=== PATIENT | female | born 1955 | race Caucasian/White ===

== ENCOUNTER 2019-12-05 18:16 | Inpatient (IN) | payer MEDICARE, BC ==
[~2019-12-05] VITALS: Ht 154.9 cm; Wt 115.2 kg
--- NOTE | ~2019-12-05 | EC ---
PATIENT:MARIANA LOPES DATE OF SERVICE: 12/05/19 SEX: F MEDICAL RECORD: [id number] DATE OF : [birth year] LOCATION:D.M2 D.210 AGE OF PATIENT: 64 ADMISSION DATE: 12/05/19 REFERRING PHYSICIAN: INTERPRETING PHYSICIAN: AYANA CAMPBELL MD ECHOCARDIOGRAM REPORT ECHO CHARGES 4 ECHO COMPLETE Date: 12/06/19 CLINICAL DIAGNOSIS: EDEMA/MURMUR ECHOCARDIOGRAPHIC MEASUREMENTS (adult normal given) AC root (d.<3.7cm) 3.2 cm LV Septum d (<1.2 cm> 1.5 cm Valve Excursion 1.6 cm LV Septum (systole) 1.9 cm Left Atria (s.<4.0cm> 4.5 cm LVPW d(<1.2cm) 1.9 cm RV (d.<2.3cm) 3.8 cm LVPW (sytole) 2.0 cm LV diastole(<5.6CM) 4.7 cm MV E-F(>70mm/sec) cm LV systole 3.0 cm LVOT Diameter 2.0 cm MV exc.(>10mm) 1.6 cm Est.ejection fraction (50-75%) % DOPPLER: LVIT cm/sec A 114 cm/sec E 97.0 cm/sec LA cm/sec RVSP 52 mmHg LVOT 139 cm/sec AOP1/2T m/s Asc. Ao 182 cm/sec RVOT 129 cm/sec RA cm/sec PA 172 cm/sec AV Gradient Peak 13.23mmHg AV Mean 5.96 mmHg AV Area 2.6 cm MV Gradient Peak 7.82 mmHg MV Mean 3.54 mmHg MV Area cm COMMENTS: Woven Blind Loom Tender: 2 JONATHAN GUZMAN Solar Installation Foreman: 4 Dr. Campbell TAPE# PACS Pericardial Effusion N DATE OF SERVICE: PROCEDURE: Transthoracic echocardiogram. Left ventricle: Left ventricle shows evidence of LVH. There is diastolic inflow abnormalities. The hypertrophy is concentric. The patient has preserved to hyperdynamic ejection fraction 60% to 65%. The left atrium is moderately dilated. ECHOCARDIOGRAM REPORT [id number] MARIANA LOPES Aortic valve is normal. Mitral valve appears to be grossly normal. There is mild mitral annular calcification. The tricuspid valve has mild tricuspid valve regurgitation. The right ventricular systolic pressure is moderately elevated at 52 mmHg. Right ventricle is mildly enlarged. Right atrium is mildly enlarged. Pulmonic valve appears to be otherwise normal. TRANSINT:[id number] Voice Confirmation ID: [id number] DOCUMENT ID: [id number] AYANA CAMPBELL MD CC: [id number] DICTATION DATE: 12/07/19 1142 CARBIDE GRINDER: 12/07/19 1307 ADM IN [facility] [address] [place] [address]
[2019-12-05] MEDS ORDERED: GLIPIZIDE10 MG PO (18:50)
[2019-12-05] MEDS ORDERED: COLACE100 MG PO (18:51)
[2019-12-05] MEDS ORDERED: ZOLOFT50 MG PO (18:51)
[2019-12-05] MEDS ORDERED: FUROSEMIDE20 MG PO (18:51)
[2019-12-05] MEDS ORDERED: NOVOLIN 70/30 110 ML SC (18:51)
[2019-12-05] MEDS ORDERED: CLARITIN 10 MG10 MG PO (18:51)
[2019-12-05] MEDS ORDERED: NORMODYNE / TR100 MG PO (18:52)
[2019-12-05] MEDS ORDERED: PLAVIX75 MG PO (18:52)
[2019-12-05] MEDS ORDERED: LIPITOR80 MG PO (18:52)
[2019-12-05] MEDS ORDERED: NORVASC5 MG PO (18:52)
[2019-12-05] MEDS ORDERED: CATAPRES TTS-20.2 MG TD (18:53)
[2019-12-05] MEDS ORDERED: LISINOPRIL20 MG PO (18:53)
[2019-12-05 19:40] LABS: BASOPHILS 0.3 % (0-2); EOSINOPHILS 4.9 % (0-7); HEMATOCRIT 33.9 % (36.0-48.0); HEMOGLOBIN 10.4 g/dL (12-16); IMMATURE GRANULOCYTES 0.5 % (0-5); LYMPHOCYTES 16.6 % (15-50); MCH 26.3 pg (26.0-34.0); MCHC 30.7 g/dL (31.0-37.0); MCV 85.8 fL (80.0-100.0); MEAN PLATELET VOLUME 9.9 fL (7.4-10.4); MONOCYTES 4.9 % (2-11); NEUTROPHILS 72.8 % (40-80); PLATELET COUNT 401 10x3/uL (130-400); RBC 3.95 10x6/uL (4.00-5.40); WBC 18.3 10x3/uL (4.8-10.8)
[2019-12-05 19:45] LABS: ANION GAP 23.1 mmol/L (8-16); CALCIUM 8.1 mg/dL (8.5-10.1); CARBON DIOXIDE 12.8 mmol/L (21.0-32.0); CREATININE - SERUM 4.8 mg/dL (0.6-1.3); POTASSIUM - SERUM 5.9 mmol/L (3.5-5.1)
[2019-12-05 19:56] LABS: ALBUMIN 3.3 g/dL (3.4-5.0); BILIRUBIN - TOTAL 0.28 mg/dL (0.2-1.3); PROTEIN - SERUM 7.9 g/dL (6.4-8.2)
[2019-12-05 19:59] LABS: INR 1.2 (0.85-1.17); PROTIME 15.1 SECONDS (11.6-15.0)
[2019-12-05 20:15] LABS: CKMB 1.4 U/L (0.0-3.6); CREATINE KINASE 73 UL (21-215); PRO BNP 1981 pg/mL (0-125)
[2019-12-05 20:23] LABS: TROPONIN-I < 0.017 ng/mL (0.000-0.060)
--- NOTE | 2019-12-05 21:16 | NUR ---
PATIENT SENT HERE BY HER DOCTOR, STATES SHE IS IN KIDNEY FAILURE. PATIENT IS A+O X3, VERY PLEASANT, IS ABLE TO URINATE,
--- NOTE | 2019-12-05 22:00 | NUR ---
ADMIT TO ROOM 2108 FROM ER. ALERT/ORIENTED. CALL LIGHT IN REACH.
--- NOTE | 2019-12-05 22:45 | NUR ---
PT SITTING UP IN BED WITHOUT DISTRESS, AOX4. IV LEFT FA SL, FLUSHES EASILY. VSS. WALKER AT BEDSIDE. PT STATES SHE IS WEAK AND HAS FALLEN AT HOME A FEW TIMES. ENCOURAGED PT TO CALL WHEN NEEDING ASSISTANCE UP. BED ALARM ON. PT VERBALZIED UNDERSTANDING. PROVIDED PT WITH ICE WATER. TELE PLACED ON PT. PT HAVING TREMORS IN LEFT LEG. STATES IT "JUMPS" WHEN SHE IS TIRED. TURNED LIGHTS OFF FOR PT. DENIED FURTHER NEEDS. CL IN REACH, WILL CTM
[2019-12-06] VITALS: BP 108/54
[2019-12-06] MEDS ORDERED: METHOTREXATE2.5 MG PO (00:10)
[2019-12-06] MEDS ORDERED: PROTONIX20 MG PO (00:11)
[2019-12-06] MEDS ORDERED: ZOLOFT100 MG PO (00:11)
[2019-12-06] MEDS ORDERED: DIOVAN160 MG PO (00:12)
[2019-12-06] MEDS ORDERED: NORVASC5 MG PO (00:12)
[2019-12-06 00:13] VITALS: BMI 49.0
--- NOTE | 2019-12-06 00:15 | NUR ---
ASSISTED PT TO BATHROOM WITH WALKER. VOIDED 300ML
[2019-12-06 04:49] VITALS: BP 127/54
[2019-12-06 05:07] LABS: BASOPHILS 0.1 % (0-2); EOSINOPHILS 4.7 % (0-7); HEMATOCRIT 30.5 % (36.0-48.0); HEMOGLOBIN 9.4 g/dL (12-16); IMMATURE GRANULOCYTES 0.4 % (0-5); LYMPHOCYTES 17.9 % (15-50); MCH 25.9 pg (26.0-34.0); MCHC 30.8 g/dL (31.0-37.0); MEAN PLATELET VOLUME 10.3 fL (7.4-10.4); MONOCYTES 6.3 % (2-11); NEUTROPHILS 70.6 % (40-80); RBC 3.63 10x6/uL (4.00-5.40); RDW 15.2 % (11.5-14.5); WBC 16.2 10x3/uL (4.8-10.8)
[2019-12-06 05:16] LABS: PLATELET COUNT 288 10x3/uL (130-400)
[2019-12-06 05:22] LABS: ALBUMIN 2.9 g/dL (3.4-5.0); BILIRUBIN - TOTAL 0.36 mg/dL (0.2-1.3); CALCIUM 7.9 mg/dL (8.5-10.1); CARBON DIOXIDE 11.8 mmol/L (21.0-32.0); CREATININE - SERUM 4.5 mg/dL (0.6-1.3); PROTEIN - SERUM 7.4 g/dL (6.4-8.2)
[2019-12-06 05:24] LABS: ANION GAP 21.1 mmol/L (8-16); POTASSIUM - SERUM 5.9 mmol/L (3.5-5.1)
--- NOTE | 2019-12-06 05:27 | NUR ---
ASSISTED PT UP TO BATHROOM WITH WALKER. PT HAVING DIARHEA THIS MORNING. STATES "THIS ALWAYS HAPPENS WHEN I COME TO HOSPITAL" CHANGED PT LINENS IT GOT ON THEM WHILE AMBULATING. PROVIDED NEW GOWN
--- NOTE | 2019-12-06 06:09 | NUR ---
PT VOIDED 100ML. ASSISTED BACK TO BED. BED ALARM ON. NON SLIP SOCKS ON. YELLOW BAND ON. PROVIDED PT ICE WATER AND KLEENEX. ENCOURAGED PT TO USE INCENTIVE SPIROMETER, EDUCATED ON USE. PT VERBALIZED UNDERSTANDING. ABLE TO INHALE 1000. SCDS ON. DENIES NEEDS. CL IN REACH, WILL CTM
--- NOTE | 2019-12-06 09:52 | NUR ---
RESTING IN BED, NO DISTRESS NOTED, ALERT AND O, CONT TO MONITOR LABS
[2019-12-06 10:04] LABS: % SATURATION 16 % (15-55); IRON 52 ug/dl (35-150); TOTAL IRON BIND CAPACITY 306 ug/dl (260-445); UNSAT IRON BIND CAPACITY 254 ug/dl (150-375)
[2019-12-06 10:44] VITALS: BP 151/55
[2019-12-06 12:13] LABS: SPECIFIC GRAVITY 1.015 (1.005-1.020)
[2019-12-06 12:14] LABS: BACTERIA FEW /hpf (NEGATIVE); BILIRUBIN NEGATIVE (NEGATIVE); GLUCOSE 250 mg/dL (NEGATIVE); KETONE NEGATIVE (NEGATIVE); NITRITE NEGATIVE (NEGATIVE); UROBILINOGEN NORMAL (NORMAL); WHITE CELLS - URINE 0-5 /hpf (NEGATIVE)
[2019-12-06 12:36] LABS: CREATININE - URINE 66.2 mg/dL (30-125)
[2019-12-06 12:46] LABS: PROTEIN - URINE 474.3 mg/dL (0.0-11.9)
[2019-12-06 12:59] VITALS: BP 173/64
[2019-12-06 16:00] VITALS: BP 176/66
--- NOTE | 2019-12-06 19:17 | NUR ---
RECEIVED REPORT, WILL ASSUME CARE OF PT, ASSISTED PT TO RESTROOM, BACK TO BED, CALL LIGHT IN REACH, WILL CONTINUE PLAN OF CARE
[2019-12-06 20:00] VITALS: BP 167/73
[2019-12-07] VITALS: BP 155/58
[2019-12-07 04:00] VITALS: BP 149/47
--- NOTE | 2019-12-07 04:15 | NUR ---
ASSIST PT TO BATHROOM AND BACK TO BED
[2019-12-07 08:12] LABS: BASOPHILS 0.3 % (0-2); EOSINOPHILS 4.8 % (0-7); IMMATURE GRANULOCYTES 0.4 % (0-5); LYMPHOCYTES 16.1 % (15-50); MCH 26.1 pg (26.0-34.0); MCHC 31.3 g/dL (31.0-37.0); MCV 83.6 fL (80.0-100.0); MEAN PLATELET VOLUME 9.8 fL (7.4-10.4); MONOCYTES 1.7 % (2-11); NEUTROPHILS 76.7 % (40-80); RBC 3.83 10x6/uL (4.00-5.40); WBC 12.9 10x3/uL (4.8-10.8)
[2019-12-07 08:16] LABS: PLATELET COUNT 368 10x3/uL (130-400)
[2019-12-07 08:31] LABS: ALBUMIN 3.1 g/dL (3.4-5.0); BILIRUBIN - TOTAL 0.34 mg/dL (0.2-1.3); CALCIUM 8.1 mg/dL (8.5-10.1); CARBON DIOXIDE 14.7 mmol/L (21.0-32.0); PHOSPHOROUS 6.6 mg/dL (2.5-4.9); PROTEIN - SERUM 7.5 g/dL (6.4-8.2)
[2019-12-07 08:32] LABS: ANION GAP 21.2 mmol/L (8-16); POTASSIUM - SERUM 4.9 mmol/L (3.5-5.1)
[2019-12-07 09:18] VITALS: BP 144/61
--- NOTE | 2019-12-07 09:43 | NUR ---
UP TO SHOWER, NO DISTRESS NOTED, SL IN PLACE, C/O SOME DIARRHEA AGAIN THIS AM
[2019-12-07 12:56] VITALS: BP 187/74
[2019-12-07 17:00] VITALS: BP 140/77
--- NOTE | 2019-12-07 17:00 | NUR ---
RECHECKED PT BP 140/77 SUGAR 257, STATES THAT SHE DOESNT FEEL THAT WELL THIS PM, CONT TO MONITOR
[2019-12-07 17:23] VITALS: BP 200/70
--- NOTE | 2019-12-07 19:30 | NUR ---
RECEIVED REPORT, WILL ASSUME CARE OF PT, WOOD MOLDER IN ROOM CLEANING PT UP, WILL KEEP NPO ORDER FOR PROCEDURE ORDER, BED IS LOW, SRX2, CALL LIGHT IN REACH, WILL CONTINUE PLAN OF CARE
[2019-12-08] VITALS: BP 185/73
[2019-12-08 04:00] VITALS: BP 149/66
--- NOTE | 2019-12-08 05:15 | NUR ---
I have reviewed this patient and I concur with the Shift Assessment completed by the Licensed Practical Nurse today this shift.
[2019-12-08 05:56] LABS: BASOPHILS 0.2 % (0-2); EOSINOPHILS 1.6 % (0-7); HEMATOCRIT 30.8 % (36.0-48.0); HEMOGLOBIN 9.7 g/dL (12-16); IMMATURE GRANULOCYTES 0.2 % (0-5); LYMPHOCYTES 12.3 % (15-50); MCH 26.3 pg (26.0-34.0); MCHC 31.5 g/dL (31.0-37.0); MCV 83.5 fL (80.0-100.0); MONOCYTES 1.3 % (2-11); NEUTROPHILS 84.4 % (40-80); PLATELET COUNT 354 10x3/uL (130-400); RBC 3.69 10x6/uL (4.00-5.40); RDW 14.7 % (11.5-14.5); WBC 16.1 10x3/uL (4.8-10.8)
[2019-12-08 06:22] LABS: ALBUMIN 2.9 g/dL (3.4-5.0); ANION GAP 19.3 mmol/L (8-16); BILIRUBIN - TOTAL 0.48 mg/dL (0.2-1.3); CALCIUM 8.3 mg/dL (8.5-10.1); CARBON DIOXIDE 14.2 mmol/L (21.0-32.0); CREATININE - SERUM 3.7 mg/dL (0.6-1.3); PHOSPHOROUS 5.1 mg/dL (2.5-4.9); POTASSIUM - SERUM 4.5 mmol/L (3.5-5.1); PROTEIN - SERUM 7.3 g/dL (6.4-8.2)
[2019-12-08 08:13] VITALS: BP 165/74
[2019-12-08 10:03] LABS: APTT 44.7 SECONDS (22.8-39.4); INR 1.21 (0.85-1.17); PROTIME 15.3 SECONDS (11.6-15.0)
[2019-12-08 10:15] VITALS: Ht 154.9 cm; Wt 115.2 kg
[2019-12-08 14:15] VITALS: BP 163/72
--- NOTE | 2019-12-08 14:20 | NUR ---
RECIEVED PT FROM RR. AWAKE BUT SLEEPY. HEMOSPLIT IN R CHEST. DRESSING CLEAN AND DRY. L LOWER ARM FISTULA IS TEGADERM. SMALL AMT OF BLOOD NOTED. VS STABLE. TAKING SIPS OF WATER TOLERATING WELL.
--- NOTE | 2019-12-08 19:20 | NUR ---
RECEIVED REPORT, WILL ASSUME CARE OF PT, DENIES ANY NEEDS AT THIS TIME, BED IS LOW, SRX2, CALL LIGHT IN REACH, WILL CONTINUE PLAN OF CARE
[2019-12-08 23:48] LABS: BILIRUBIN NEGATIVE (NEGATIVE); GLUCOSE 250 mg/dL (NEGATIVE); KETONE SMALL mg/dL (NEGATIVE); NITRITE NEGATIVE (NEGATIVE); SPECIFIC GRAVITY 1.015 (1.005-1.020); UROBILINOGEN NORMAL (NORMAL)
[2019-12-08 23:51] LABS: BACTERIA MODERATE /hpf (NEGATIVE); EPITHELIAL CELLS 0-5 /hpf (0-5); GRANULAR CAST 0-5 /lpf (NONE SEEN); HYALINE CAST 0-5 /lpf (NONE SEEN); RED CELLS - URINE 0-5 /hpf (0-5); WHITE CELLS - URINE 0-5 /hpf (NEGATIVE)
[2019-12-08 23:55] VITALS: BP 136/52
[2019-12-09 05:18] LABS: BASOPHILS 0.3 % (0-2); EOSINOPHILS 3.1 % (0-7); HEMATOCRIT 31.9 % (36.0-48.0); HEMOGLOBIN 9.8 g/dL (12-16); IMMATURE GRANULOCYTES 0.3 % (0-5); LYMPHOCYTES 12.4 % (15-50); MCH 25.9 pg (26.0-34.0); MCHC 30.7 g/dL (31.0-37.0); MCV 84.2 fL (80.0-100.0); MEAN PLATELET VOLUME 9.9 fL (7.4-10.4); MONOCYTES 3.4 % (2-11); NEUTROPHILS 80.5 % (40-80); PLATELET COUNT 359 10x3/uL (130-400); RBC 3.79 10x6/uL (4.00-5.40); RDW 14.7 % (11.5-14.5); WBC 17.2 10x3/uL (4.8-10.8)
[2019-12-09 05:37] LABS: ALBUMIN 2.9 g/dL (3.4-5.0); BILIRUBIN - TOTAL 0.53 mg/dL (0.2-1.3); CREATININE - SERUM 3.1 mg/dL (0.6-1.3); POTASSIUM - SERUM 4.1 mmol/L (3.5-5.1); PROTEIN - SERUM 7.5 g/dL (6.4-8.2)
[2019-12-09 05:39] LABS: ANION GAP 20.3 mmol/L (8-16); CARBON DIOXIDE 17.8 mmol/L (21.0-32.0)
--- NOTE | 2019-12-09 07:46 | NUR ---
4MG OF ZOFRAN GIVEN FOR NAUSEA. PT A/O X4, RESP EVEN AND NONLABORED ON RA. RT FA INFUSING SODIUM BICARB AT 30CC/HR. FISTULA SITE TENDER TO TOUTH AND SMALL AMOUNT OF BLOOD NOTED TO SITE. PT DENIES ANY OTHER NEEDS AT THIS TIME. GUARD RAIL INSTALLER AT BEDSIDE TO GET VITAL SIGNS. CALL LIGHT IN REACH, BEDSIDE RAILS X2, NAD NOTED, WILL CONTINUE TO MONITOR.
[2019-12-09 08:10] LABS: HEPATITIS C ANTIBODY <0.1 S/CO RAT (0.0-0.9)
[2019-12-09 08:29] VITALS: BP 171/73
[2019-12-09 09:09] LABS: ANA REFLEX - DIRECT Negative (Negative)
--- NOTE | 2019-12-09 09:58 | NUR ---
AM MEDS GIVEN AT THIS TIME. PT IN BED, DENIES ANY NEEDS AT THIS TIME. CALL LIGHT IN REACH, NAD NOTED, WILL CONTINUE TO MONITOR.
--- NOTE | 2019-12-09 10:14 | NUR ---
PT TO DIALYSIS VIA BED, NAD NOTED.
--- NOTE | 2019-12-09 13:36 | NUR ---
PT BACK FROM DIALYSIS. HELPED PT TO BATHROOM, PT WILL PULL BATHROOM RIGHT, WHEN READY TO GET BACK IN BED.
--- NOTE | 2019-12-09 14:34 | NUR ---
0.1MG OF BUPRENEX GIVEN FOR PAIN LEVEL OF 10/10. ALSO GAVE 4MG OF ZOFRAN FOR NAUSEA. PT DENIES ANY OTHER NEEDS AT THIS TIME. CALL LIGHT IN REACH,NAD NOTED,W ILL CONTINUE TO MONITOR.
[2019-12-09 16:08] LABS: SPE - A/G RATIO 0.9 (0.7-1.7); SPE - ALBUMIN 3.4 g/dL (2.9-4.4); SPE - ALPHA-1 GLOBULIN 0.3 g/dL (0.0-0.4); SPE - ALPHA-2 GLOBULIN 1.2 g/dL (0.4-1.0); SPE - BETA GLOBULIN 1.1 g/dL (0.7-1.3); SPE - GAMMA GLOBULIN 1.2 g/dL (0.4-1.8); SPE - M-SPIKE Not Observed g/dL (Not Observed); SPE - TOTAL PROTEIN 7.1 g/dL (6.0-8.5)
[2019-12-09 17:13] VITALS: BP 140/71
--- NOTE | 2019-12-09 19:00 | NUR ---
REPORT RECEIVED, WILL CONTINUE POC. PATIENT IS AAOX4, LYING IN SEMI-FOWLERS POSITION. NO S/S OF DISTRESS OBSERVED, RR EVEN AND UNLABORED ON ROOM AIR. PATIENT C/O PAIN TO LT WRIST, DAY NURSE ALREADY REWRAPPED IN KERLEX AND RELEIVED PRESSURE. INFORMED PATIENT THAT SHE HAS A PRN PAIN MED, SHE SAID SHE WOULD TAKE IT. PATIENT DENIES FURTHER NEEDS AT THIS TIME. CL IN REACH, BED LOCKED AND LOWERED. WILL CTM.
--- NOTE | 2019-12-09 19:25 | NUR ---
PATIENT DAUGHTER CALLED, PASSWORD VERIFIED, UPDATE GIVEN.
[2019-12-09 20:00] VITALS: BP 186/81
--- NOTE | 2019-12-09 23:58 | NUR ---
PATIENT HEAT TREATER HEAD LIGHT, ON SIDE OF BED UPON ENTERING ROOM. PATIENT REMOVED DRSG TO LT WRIST. APPLIED A NEW TEGADERM AND KERLEX. EDUCATED PATIENT TO NOT REMOVE DRESSINGS AND INFECTION CONTROL. ASSISTED PATIENT TO BATHROOM, WHERE SHE VOMITED GREEN/YELLOW LIQUID AND HAD SMALL LOOSE BM. ASSISTED PATIENT BACK TO BED. OFFERED SMALL SIPS OF WATER. PATIENT SAYS SHE FEELS A LITTLE BETTER. CL IN REACH, BED LOCKED AND LOWERED. WILL CTM.
[2019-12-10] VITALS: BP 170/62
[2019-12-10 04:00] VITALS: BP 166/68
[2019-12-10 06:31] LABS: BASOPHILS 0.2 % (0-2); EOSINOPHILS 2.4 % (0-7); HEMATOCRIT 29.9 % (36.0-48.0); HEMOGLOBIN 9.3 g/dL (12-16); IMMATURE GRANULOCYTES 0.4 % (0-5); MCH 26.2 pg (26.0-34.0); MCHC 31.1 g/dL (31.0-37.0); MCV 84.2 fL (80.0-100.0); MONOCYTES 5.1 % (2-11); NEUTROPHILS 74.9 % (40-80); PLATELET COUNT 298 10x3/uL (130-400); RBC 3.55 10x6/uL (4.00-5.40); RDW 14.4 % (11.5-14.5); WBC 13.9 10x3/uL (4.8-10.8)
[2019-12-10 06:54] LABS: ALBUMIN 2.7 g/dL (3.4-5.0); BILIRUBIN - DIRECT 0.15 mg/dL (0.00-0.30); BILIRUBIN - INDIRECT 0.32 mg/dL (0.00-1.00); BILIRUBIN - TOTAL 0.47 mg/dL (0.2-1.3); CALCIUM 7.7 mg/dL (8.5-10.1); CREATININE - SERUM 3.4 mg/dL (0.6-1.3); PHOSPHOROUS 5.8 mg/dL (2.5-4.9); POTASSIUM - SERUM 3.5 mmol/L (3.5-5.1); PROTEIN - SERUM 6.4 g/dL (6.4-8.2)
[2019-12-10 06:55] LABS: ANION GAP 16.1 mmol/L (8-16); CARBON DIOXIDE 22.4 mmol/L (21.0-32.0)
[2019-12-10 08:00] VITALS: BP 182/75
--- NOTE | 2019-12-10 10:00 | NUR ---
AM MEDS GIVEN AT THIS TIME, ALSO GAVE NORCO FOR PAIN LEVEL OF 5/10. ALSO GAVE 4MG OF ZOFRAN FOR NAUSEA. PT DENIES ANY NEED AT THIS TIME. CALL LIGHT IN REACH, NAD NOTED, WILL CONTINUE TO MONITOR.
[2019-12-10 12:00] VITALS: BP 147/56
--- NOTE | 2019-12-10 12:12 | NUR ---
Nutrition Follow-up: C/o N/V/D since admit. Ate ~25% of breakfast this AM. Requested chicken broth with lunch today. Agreed to try Nepro. HD yesterday. Diet: Renal ADA PO intake: 0-25% Wt: 266.7# (12/08); 258# (12/07) Labs noted: K+ 3.5, Glu 198, Ca 7.7, PO4 5.8, Alb 2.7 Meds noted: Glucotrol, Lomotil, Zofran, Folate, Humulin -Encourage PO intake and honor food preferences within diet restrictions. -Nepro sent with lunch today for pt trial. -Monitor wt. -RD following.
[2019-12-10 16:00] VITALS: BP 168/73
[2019-12-10 16:08] LABS: ANCA - ANTIMYELOPEROXIDASE <9.0 U/mL (0.0-9.0); ANCA - ANTIPROTEINASE 3 <3.5 U/mL (0.0-3.5); ANCA - ATYPICAL <1:20 titer (Neg:<1:20); ANCA - CYTOPLASMIC <1:20 titer (Neg:<1:20); ANCA - PERINUCLEAR <1:20 titer (Neg:<1:20)
--- NOTE | 2019-12-10 16:30 | NUR ---
BLOOD SUGAR OF 261, 6UNITS GIVEN PER S/S. ALSO GAVE NORCO FOR PAIN LEVEL OF 5/10. DRESSING CHANGE PROVIDED TO RT CHEST HEMOSPLIT. PT DENIES ANY NEEDS AT THIS TIME. CALL LIGHT IN REACH, NAD NOTED, WILL CONTINUE TO MONITOR.
--- NOTE | 2019-12-10 16:42 | MORECARE ---
CASE MANAGEMENT DISCHARGE SUMMARY PATIENT: MARIANA LOPES UNIT: [id number] ADM DATE: 12/05/19 AGE: 64 : 59 SEX: F ROOM/BED: D.2104 AUTHOR: SANTIAGO DIGGS PHYSICIAN: REFERRING PHYSICIAN: KELSEY BADILLO MD DATE OF SERVICE: 12/10/19 Discharge Plan Patient Name: MARIANA LOPES [facility] [facility] 1955 Planned Disposition: Inpatient Rehab Anticipated Discharge Date: Discharge Date: Expected LOS: Initial Reviewer: [email or web address] Initial Review Date: 12/10/2019 Generated: 12/10/19 5:41 pm DCPIA - Discharge Planning Initial Assessment Updated by [email or web address]: Tracey Gill on 12/10/19 4:39 pm * Is the patient Alert and Oriented? Yes * How many steps to enter\exit or inside your home? 4/0 * PCP Dr. Lacey in [place] * [facility] in [place] * Preadmission Environment Home with Family * ADLs Partial Dependent * Partial ADLs (Assistance needed) Ambulation * Equipment Glucometer Other * Other Equipment Rollator walker * List name and contact numbers for known caregivers / representatives who currently or will assist patient after discharge: Alton Lopes - spouse - [phone] * Verbal permission to speak to the caregivers and representatives has been obtained from the patient. Yes * Community resources currently utilized Home Health * Please name any agencies selected above. unknown home health agency * Additional services required to return to the preadmission environment? Yes * Can the patient safely return to the preadmission environment? Yes * Has this patient been hospitalized within the prior 30 days at any hospital? Yes Patient Name: MARIANA LOPES Page 00054 at 1642 All edits/amendments must be made on the electronic document DICTATION DATE: 12/10/191640 PHARMACY LABORATORY TECHNICIAN: LAUREN 12/10/191640 RPT#: [id number] DC DATE: STATUS: ADM IN [facility] [address] [id number] END OF REPORT
--- NOTE | 2019-12-10 16:49 | MORECARE ---
CASE MANAGEMENT DISCHARGE SUMMARY PATIENT: MARIANA LOEPS UNIT: [id number] ADM DATE: 12/05/19 AGE: 64 : 59 SEX: F ROOM/BED: D.2101 AUTHOR: SANTIAGO DIGGS PHYSICIAN: REFERRING PHYSICIAN: KELSEY QUISPE MD DATE OF SERVICE: 12/10/19 Discharge Plan Patient Name: MARIANA LOPES Facility: [facility]:[place] : 1955 Planned Disposition: Inpatient Rehab Anticipated Discharge Date: Discharge Date: Expected LOS: Initial Reviewer: [email or web address] Initial Review Date: 12/10/2019 Generated: 12/10/19 5:49 pm Comments DCP- Discharge Planning Updated by [email or web address]: Tracey Gill on 12/10/19 3:[address] Patient Name: MARIANA LOPES Admission Status: ER Accout number: [id number] Admission Date: 12-05-2019 : 1955 Admission Diagnosis:ACUTE KIDNEY FAILURE, UNSPECIFIED Attending: Kelsey Quispe Current LOS: 5 Anticipated DC Date: Planned Disposition: Inpatient Rehab Primary Insurance: MEDICARE A & B Discharge Planning Comments: CM met with patient to discuss discharge planning/needs. States she lives with her in a single story home. States she has gotten very weak and is requesting inpatient rehab at [facility] prior to discharging home. ZULEYKA for [facility] signed and rehab screen ordered. I have also ordered a PT eval. She states that she uses her walker for ambulation. She will be set up at [facility] in [place] for dialysis. I spoke with Samanta Weiner, OP dialysis coordinator, and she states she has a chair for her, but will let us know date and time when she is ready for DC. I notified Samanta that patient is requesting inpatient rehab prior to discharge. CM will continue to follow and assist with discharge planning/needs. #[phone] Brick Wheeler: Tracey Gill DCPIA - Discharge Planning Initial Assessment Updated by [email or web address]: Tracey Gill on 12/10/19 4:39 pm * Is the patient Alert and Oriented? Yes * How many steps to enter\exit or inside your home? 4/0 * PCP Dr. Lacey in [place] * Pharmacy [facility] in [place] * Preadmission Environment Home with Family * ADLs Partial Dependent * Partial ADLs (Assistance needed) Ambulation * Equipment Glucometer Other * Other Equipment Rollator walker * List name and contact numbers for known caregivers / representatives who currently or will assist patient after discharge: Alton Lopes - spouse - [phone] * Verbal permission to speak to the caregivers and representatives has been obtained from the patient. Yes * Community resources currently utilized Home Health * Please name any agencies selected above. unknown home health agency * Additional services required to return to the preadmission environment? Yes * Can the patient safely return to the preadmission environment? Yes * Has this patient been hospitalized within the prior 30 days at any hospital? Yes Coverage Notice Reviewer: [email or web address] Kaya Gill Notice Issued Date-Time: 12/10/2019 16:43 Notice Type: IM Discharge Notice Notice Delivered To: Patient Relationship to Patient: Self Brake Repairer Name: Delivery Method: HAND - Hand Delivered Sue Days: Prior Verbal Notification: Recipient Understood Notice: Yes Recipient Signature: Yes Med Rec Note Co-signed by Attending: Coverage Notice Comment: IMM explained, signed, given, copy placed in MR Reviewer: [email or web address] Kaya Gill Notice Issued Date-Time: 12/10/2019 16:43 Notice Type: Patient Choice Letter Notice Delivered To: Patient Relationship to Patient: Self Brake Repairer Name: Delivery Method: HAND - Hand Delivered Sue Days: Prior Verbal Notification: Recipient Understood Notice: Yes Recipient Signature: Yes Med Rec Note Co-signed by Attending: Coverage Notice Comment: ZULEYKA for inpatient rehab at [facility] Last DP export: 12/10/19 3:42 pm Patient Name: MARIANA LOPES Page [phone] at 1649 All edits/amendments must be made on the electronic document DICTATION DATE: 12/10/191648 WANIGAN CLERK: LAUREN 12/10/191648 RPT#: [id number] DC DATE: STATUS: ADM IN [facility] [address] [place] [address] END OF REPORT
--- NOTE | 2019-12-10 17:18 | OP ---
PATIENT NAME: MARIANA LOPES MEDICAL RECORD: [id number] :[birth year] LOCATION:D.M2 D.2108 ADMISSION DATE:12/05/19 SURGEON: FLO CLARK MD DATE OF OPERATION: 12/08/2019 PREOPERATIVE DIAGNOSIS: End-stage renal disease without access for hemodialysis. POSTOPERATIVE DIAGNOSES: End-stage renal disease without access for hemodialysis. PROCEDURES: 1. Creation of left wrist radiocephalic arteriovenous fistula for hemodialysis access. 2. Placement of right internal jugular HemoSplit catheter (tunneled cuffed dual-lumen hemodialysis catheter, 19 cm). 3. Immediate surgeon interpretation of fluoroscopic images during insertion of the HemoSplit catheter. SURGEON: Flo Clark MD CLINICAL ALLERGIST: None. BLOOD LOSS: 100 cc. ANESTHESIA: General. COMPLICATIONS: None. I saw the patient in her room. She has a fairly poor venous anatomy and unfortunately has a significant layer of subcutaneous adipose tissue, which is going to make for a more difficult access of the arteriovenous fistula. OPERATIVE COURSE: The patient was conveyed to the operating room electively on 12/08/2019. General anesthesia was induced by the anesthesia staff. The patient was positioned supine and then the left upper extremity was abducted at 90 degrees to the patient's chart. Left upper extremity was sterilely prepped and draped. I examined the venous and arterial systems of the left upper extremity with a handheld sterile ultrasound. An axial incision was accomplished on the volar surface of the left distal forearm and wrist. I dissected down to the radial artery, which was encircled with vessel loops. Small pairs of veins on either side of the artery were either cauterized or ligated. Underneath the dorsal flap of skin, I tried to find a suitable vein. Some small veins were ligated doubly and divided between ligatures. I really was unable to find a suitable vein. With the ultrasound, I found a suitable vein that was the cephalic vein that was more proximal. I then incised up on to the lateral aspect of the forearm. I was able to identify a significant vein. Side branches were ligated doubly and divided between ligatures. I was unable to mobilize this vein. OPERATIVE REPORT [id number] MARIANA LOPES I then went about creating a side-to-end arterial to venous anastomosis. Intravenous heparin was given. A longitudinal arteriotomy was accomplished. I then incised the vein with micro [place]. I then fashioned an anastomosis with a running 7-0 Prolene suture. I then released control on the artery. There was some bleeding on the far side of the anastomosis and this was controlled with a few 7-0 Prolene sutures. The subdermis was approximated with interrupted 3-0 Vicryls. The skin was approximated with a running intracuticular 3-0 Vicryl. Some additional 4-0 Vicryl Rapide were used in horizontal mattress fashion at the proximal and distal aspects of the suture line. There was an excellent thrill within the fistula. Attention was then turned to placement of the HemoSplit catheter. The right neck was sterilely prepped and draped. I examined the right neck with a handheld ultrasound. I identified a compressible right internal jugular vein. Internal jugular vein was percutaneously accessed in an antegrade fashion. No radiologist was present for this procedure. Static fluoroscopic images were obtained and are kept in the PACS system for interpretation. The surgeon interpretation of the radiographic images is dictated within the body of this operative note. A small skin incision was accomplished around the wire. A counterincision was accomplished in the right anterior superior infraclavicular chest. I tunneled the 19 cm HemoSplit catheter from the chest incision to the neck incision. Over the wire, I dilated to a larger size. A dilator sheath was then advanced. The dilator and wire were removed. The tips of the HemoSplit catheter were then advanced down through the peel-away sheath, which was then removed. I then pulled back on the flange of the HemoSplit catheter in order to seat the HemoSplit catheter cuff in the subcutaneous tissues. Fluoroscopic images were obtained. One was obtained over the right lung apex. One was obtained over the mediastinum. The tips of the HemoSplit catheter were above the cavoatrial junction. There was no apparent kinking or twisting of the HemoSplit catheter. There was no radiographic evidence of complication. The flange HemoSplit catheter was sutured down to the underlying skin with 2-0 nylons. The skin incision at the neck was closed with interrupted intracuticular 3-0 Vicryls. I then flushed both lumens of the HemoSplit catheter with the appropriate amount of concentrated heparin. A sterile dressing was applied. The patient was then extubated and conveyed to post-anesthesia care unit where she was in stable condition. TRANSINT:[id number] Voice Confirmation ID: [id number] DOCUMENT ID: [id number] OPERATIVE REPORT [id number] MARIANA LOPES ROBERT MD at 1718 CC: [id number] DICTATION DATE: 12/09/191801 SMOKING PIPE MAKER: 12/10/19 0106 ADM IN [id number] [place] [address]
[2019-12-10 18:08] LABS: UPE RAND - ALBUMIN 56.4 % (()); UPE RAND - ALPHA 1 GLOBULIN 2.4 % (()); UPE RAND - ALPHA 2 GLOBULIN 9.9 % (()); UPE RAND - BETA GLOBULIN 14.7 % (()); UPE RAND - GAMMA GLOBULIN 16.7 % (())
--- NOTE | 2019-12-10 19:47 | NUR ---
PT UP IN RESTROOM. AWAKE ALERT AND ORIENTED. NO SIGNS OF DISTRESS NOTED. RESPIRATIONS EVEN AND UNLABORED. PT INSTRUCTED ON HOW TO USE PULL STRING TO CALL FOR HELP. WILL CONTINUE TO MONITOR
[2019-12-10 20:00] VITALS: BP 144/58
--- NOTE | 2019-12-11 01:03 | NUR ---
PT SITTING ON SIDE OF BED EATING NIGHT SNACK. CALL LIGHT WITH IN REACH. WILL CONTINUE TO MONITOR
[2019-12-11 04:00] VITALS: BP 117/54
[2019-12-11 07:14] LABS: BASOPHILS 0.2 % (0-2); EOSINOPHILS 5.6 % (0-7); HEMATOCRIT 27.1 % (36.0-48.0); HEMOGLOBIN 8.4 g/dL (12-16); IMMATURE GRANULOCYTES 0.3 % (0-5); MCH 26.2 pg (26.0-34.0); MCV 84.4 fL (80.0-100.0); MONOCYTES 7.3 % (2-11); NEUTROPHILS 64.6 % (40-80); PLATELET COUNT 249 10x3/uL (130-400); RBC 3.21 10x6/uL (4.00-5.40); RDW 14.2 % (11.5-14.5)
[2019-12-11 07:21] LABS: WBC 9.1 10x3/uL (4.8-10.8)
[2019-12-11 07:28] LABS: ALBUMIN 2.6 g/dL (3.4-5.0); ANION GAP 16.2 mmol/L (8-16); BILIRUBIN - TOTAL 0.28 mg/dL (0.2-1.3); CALCIUM 7.7 mg/dL (8.5-10.1); CARBON DIOXIDE 23.1 mmol/L (21.0-32.0); CREATININE - SERUM 3.9 mg/dL (0.6-1.3); POTASSIUM - SERUM 3.3 mmol/L (3.5-5.1)
[2019-12-11 08:56] VITALS: BP 159/57
--- NOTE | 2019-12-11 09:36 | NUR ---
REHAB PRESCREENING Rehab referral received and chart reviewed. Ms. Moore will be a good rehab candidate if she can tolerate 3 hours of therapy as required per day. Awaiting PT evaluation. Rehab will continue to follow this patient. Thank you for this referral! Abigail Gutierrez, RADIOLOGIC THERAPIST Rehab PD
--- NOTE | 2019-12-11 09:57 | NUR ---
ASSESSMENT DONE. DENIES NEEDS
--- NOTE | 2019-12-11 10:38 | MORECARE ---
CASE MANAGEMENT DISCHARGE SUMMARY PATIENT: MARIANA LOPES UNIT: [id number] ADM DATE: 12/05/19 AGE: 64 : 59 SEX: F ROOM/BED: D.2102 AUTHOR: DONTAE,DOC PHYSICIAN: REFERRING PHYSICIAN: KELSEY QUISPE MD DATE OF SERVICE: 12/11/19 Discharge Plan Patient Name: MARIANA LOPES Facility: [facility]:[place] : 1955 Planned Disposition: Inpatient Rehab Anticipated Discharge Date: Discharge Date: Expected LOS: Initial Reviewer: [id number] Initial Review Date: 12/10/2019 Generated: 12/11/19 11:38 am Comments DCP- Discharge Planning Updated by [email or web address]: Elise Gomez on 12/11/19 9:[address] Rehab order obtained. Provided patient with choices of Rehab @HYDROLOGIST, [facility], [facility] or [facility]. Patient's choice is [facility]. Patient Choice signed, original to patient and copy to the chart. CM Contacted [facility], with [facility]#[phone], provided initial information and faxed available information to Marjorie @[phone]. Per Rehab, they will provide HD on their 4th floor. We are pending PT/OT evaluations. Received Patient's Welcome Letter for HD [facility] obtained and provided/explained to the patient. HD schedule: M/W/F @4:00 pm. First appointment Thursday December 12, 2019 @3:00 pm for paperwork. Copy placed on the chart. Family contact: Alton Lopes (spouse)( H)[phone] works until 5 pm, Karla Montano (gdtr) [phone]. [facility] gdtr will be able to contact patient's spouse during day time hours. DCP- Discharge Planning Updated by [email or web address]: Tracey Gill on 12/10/19 3:[address] Patient Name: MARIANA LOPES Admission Status: ER Accout number: [id number] Admission Date: 12-05-2019 : 1955 Admission Diagnosis:ACUTE KIDNEY FAILURE, UNSPECIFIED Attending: Kelsey Quispe Current LOS: 5 Anticipated DC Date: Planned Disposition: Inpatient Rehab Primary Insurance: MEDICARE A & B Discharge Planning Comments: CM met with patient to discuss discharge planning/needs. States she lives with her in a single story home. States she has gotten very weak and is requesting inpatient rehab at [facility] prior to discharging home. ZULEYKA for [facility] signed and rehab screen ordered. I have also ordered a PT eval. She states that she uses her walker for ambulation. She will be set up at [facility] in [place] for dialysis. I spoke with Samanta Weiner, OP dialysis coordinator, and she states she has a chair for her, but will let us know date and time when she is ready for DC. I notified Samanta that patient is requesting inpatient rehab prior to discharge. CM will continue to follow and assist with discharge planning/needs. #[phone] Patent Prosecution Paralegal: Tracey Gill DCPIA - Discharge Planning Initial Assessment Updated by [email or web address]: Tracey Gill on 12/10/19 4:39 pm * Is the patient Alert and Oriented? Yes * How many steps to enter\exit or inside your home? 4/0 * PCP Dr. Lacey in [place] * Pharmacy [facility] in [place] * Preadmission Environment Home with Family * ADLs Partial Dependent * Partial ADLs (Assistance needed) Ambulation * Equipment Glucometer Other * Other Equipment Rollator walker * List name and contact numbers for known caregivers / representatives who currently or will assist patient after discharge: Alton Lopes - [facility] - [phone] * Verbal permission to speak to the caregivers and representatives has been obtained from the patient. Yes * Community resources currently utilized Home Health * Please name any agencies selected above. unknown home health agency * Additional services required to return to the preadmission environment? Yes * Can the patient safely return to the preadmission environment? Yes * Has this patient been hospitalized within the prior 30 days at any hospital? Yes Coverage Notice Reviewer: [id number] - Tracey Gill Notice Issued Date-Time: 12/10/2019 16:43 Notice Type: IM Discharge Notice Notice Delivered To: Patient Relationship to Patient: Self Automatic Blocker Name: Delivery Method: HAND - Hand Delivered Sue Days: Prior Verbal Notification: Recipient Understood Notice: Yes Recipient Signature: Yes Med Rec Note Co-signed by Attending: Coverage Notice Comment: IMM explained, signed, given, copy placed in MR Reviewer: [id number] - Tracey Gill Notice Issued Date-Time: 12/10/2019 16:43 Notice Type: Patient Choice Letter Notice Delivered To: Patient Relationship to Patient: Self Automatic Blocker Name: Delivery Method: HAND - Hand Delivered Sue Days: Prior Verbal Notification: Recipient Understood Notice: Yes Recipient Signature: Yes Med Rec Note Co-signed by Attending: Coverage Notice Comment: ZULEYKA for inpatient rehab at [facility] Reviewer: [email or web address] Kaya Gomez Notice Issued Date-Time: 12/11/2019 10:34 Notice Type: Patient Choice Letter Notice Delivered To: Patient Relationship to Patient: Self Automatic Blocker Name: Mariana Lopes Delivery Method: HAND - Hand Delivered Sue Days: Prior Verbal Notification: Recipient Understood Notice: Yes Recipient Signature: Yes Med Rec Note Co-signed by Attending: Coverage Notice Comment: Patient Choice for [facility] signed/provided for patient. Copy to chart. Last DP export: 12/10/19 3:49 pm Patient Name: MARIANA LOPES Page [id number] at 1038 All edits/amendments must be made on the electronic document DICTATION DATE: 12/11/19 1038 NET FISHER: LAUREN 12/11/19 1038 RPT#: [id number] DC DATE: STATUS: ADM IN [facility] [address] [place] [address] END OF REPORT
--- NOTE | 2019-12-11 10:45 | NUR ---
ASSESSMENT DONE. DENIES NEEDS
--- NOTE | 2019-12-11 14:56 | NUR ---
I have reviewed this patient and I concur with the Shift Assessment completed by the Licensed Practical Nurse today this shift.
--- NOTE | 2019-12-11 15:25 | MORECARE ---
CASE MANAGEMENT DISCHARGE SUMMARY PATIENT: MARIANA LOPES UNIT: [id number] ADM DATE: 12/05/19 AGE: 64 : 59 SEX: F ROOM/BED: D.2103 AUTHOR: DONTAE,DOC PHYSICIAN: REFERRING PHYSICIAN: KELSEY QUISPE MD DATE OF SERVICE: 12/11/19 Discharge Plan Patient Name: MARIANA LOPES Facility: [facility]:[place] : 1955 Planned Disposition: Inpatient Rehab Anticipated Discharge Date: Discharge Date: Expected LOS: Initial Reviewer: [email or web address] Initial Review Date: 12/10/2019 Generated: 12/11/19 4:24 pm Comments DCP- Discharge Planning Updated by [id number]: Elise Gomez on 12/11/19 9:[address] Rehab order obtained. Provided patient with choices of Rehab @REFRIGERATING TECHNICIAN, [facility], [facility] or [facility]. Patient's choice is [facility]. Patient Choice signed, original to patient and copy to the chart. CM Contacted [facility], with [facility]#[phone], provided initial information and faxed available information to Marjorie @[phone]. Per Rehab, they will provide HD on their 4th floor. We are pending PT/OT evaluations. Received Patient's Welcome Letter for HD [facility] obtained and provided/explained to the patient. HD schedule: M/W/F @4:00 pm. First appointment Thursday December 12, 2019 @3:00 pm for paperwork. Copy placed on the chart. Family contact: Alton Lopes (spouse)( H)[phone] works until 5 pm, Karla Montano (gdtr) [phone]. [facility] gdtr will be able to contact patient's spouse during day time hours. DCP- Discharge Planning Updated by [id number]: Tracey Gill on 12/10/19 3:[address] Patient Name: MARIANA LOPES Admission Status: ER Accout number: [id number] Admission Date: 12-05-2019 : 1955 Admission Diagnosis:ACUTE KIDNEY FAILURE, UNSPECIFIED Attending: Kelsey Quispe Current LOS: 5 Anticipated DC Date: Planned Disposition: Inpatient Rehab Primary Insurance: MEDICARE A & B Discharge Planning Comments: CM met with patient to discuss discharge planning/needs. States she lives with her in a single story home. States she has gotten very weak and is requesting inpatient rehab at [facility] prior to discharging home. ZULEYKA for [facility] signed and rehab screen ordered. I have also ordered a PT eval. She states that she uses her walker for ambulation. She will be set up at [facility] in [place] for dialysis. I spoke with Samanta Weiner, OP dialysis coordinator, and she states she has a chair for her, but will let us know date and time when she is ready for DC. I notified Samanta that patient is requesting inpatient rehab prior to discharge. CM will continue to follow and assist with discharge planning/needs. #[phone] General Teller: Tracey Gill DCPIA - Discharge Planning Initial Assessment Updated by [id number]: Tracey Gill on 12/10/19 4:39 pm * Is the patient Alert and Oriented? Yes * How many steps to enter\exit or inside your home? 4/0 * PCP Dr. Lacey in [place] * Pharmacy [facility] in [place] * Preadmission Environment Home with Family * ADLs Partial Dependent * Partial ADLs (Assistance needed) Ambulation * Equipment Glucometer Other * Other Equipment Rollator walker * List name and contact numbers for known caregivers / representatives who currently or will assist patient after discharge: Alton Lopes - [facility] - [phone] * Verbal permission to speak to the caregivers and representatives has been obtained from the patient. Yes * Community resources currently utilized Home Health * Please name any agencies selected above. unknown home health agency * Additional services required to return to the preadmission environment? Yes * Can the patient safely return to the preadmission environment? Yes * Has this patient been hospitalized within the prior 30 days at any hospital? Yes External Providers External Provider: [facility] Next Contact Date: Service Request Date: Service Type: Resolution: Reviewer: Comments: External Provider: [facility] Next Contact Date: Service Request Date: Service Type: Resolution: Reviewer: Comments: Coverage Notice Reviewer: [id number] - Tracey Gill Notice Issued Date-Time: 12/10/2019 16:43 Notice Type: IM Discharge Notice Notice Delivered To: Patient Relationship to Patient: Self Geophysics Teacher Name: Delivery Method: HAND - Hand Delivered Sue Days: Prior Verbal Notification: Recipient Understood Notice: Yes Recipient Signature: Yes Med Rec Note Co-signed by Attending: Coverage Notice Comment: IMM explained, signed, given, copy placed in MR Reviewer: [id number] Kaya Gill Notice Issued Date-Time: 12/10/2019 16:43 Notice Type: Patient Choice Letter Notice Delivered To: Patient Relationship to Patient: Self Geophysics Teacher Name: Delivery Method: HAND - Hand Delivered Sue Days: Prior Verbal Notification: Recipient Understood Notice: Yes Recipient Signature: Yes Med Rec Note Co-signed by Attending: Coverage Notice Comment: ZULEYKA for inpatient rehab at [facility] Reviewer: [id number] Kaya Gomez Notice Issued Date-Time: 12/11/2019 10:34 Notice Type: Patient Choice Letter Notice Delivered To: Patient Relationship to Patient: Self Geophysics Teacher Name: Mariana Lopes Delivery Method: HAND - Hand Delivered Sue Days: Prior Verbal Notification: Recipient Understood Notice: Yes Recipient Signature: Yes Med Rec Note Co-signed by Attending: Coverage Notice Comment: Patient Choice for [facility] signed/provided for patient. Copy to chart. Last DP export: 12/11/19 9:38 am Patient Name: MARIANA LOPES Page [phone] at 1525 All edits/amendments must be made on the electronic document DICTATION DATE: 12/11/19 1524 MEASURING MACHINE OPERATOR: LAUREN 12/11/19 1524 RPT#: [id number] DC DATE: STATUS: ADM IN [facility] [address] [place] [address] END OF REPORT
--- NOTE | 2019-12-11 15:32 | MORECARE ---
CASE MANAGEMENT DISCHARGE SUMMARY PATIENT: JUDIE LOPES UNIT: [id number] ADM DATE: 12/05/19 AGE: 64 : 59 SEX: F ROOM/BED: D.2463 AUTHOR: DONTAE,DOC PHYSICIAN: REFERRING PHYSICIAN: KELSEY QUISPE MD DATE OF SERVICE: 12/11/19 Discharge Plan Patient Name: JUDIE LOPES Facility: [facility]:[place] : 1955 Planned Disposition: Inpatient Rehab Anticipated Discharge Date: Discharge Date: Expected LOS: Initial Reviewer: [email or web address] Initial Review Date: 12/10/2019 Generated: 12/11/19 4:31 pm Comments DCP- Discharge Planning Updated by [id number]: Elise Gomez on 12/11/19 2:[address] Rehab order obtained. Provided patient with choices of Rehab @OPTICAL GOODS DRILL OPERATOR, [facility], [facility] or [facility]. Patient's choice is [facility]. Patient Choice signed, original to patient and copy to the chart. CM Contacted Marjorie, with [facility]#[phone], provided initial information and faxed available information to Marjorie @[phone]. Per Rehab, they will provide HD on their 4th floor. We are pending PT/OT evaluations. Received Patient's Welcome Letter for HD [facility] obtained and provided/explained to the patient. HD schedule: M/W/F @4:00 pm. First appointment Thursday December 12, 2019 @3:00 pm for paperwork. Copy placed on the chart. Family contact: Alton Lopes (spouse)( H)[phone] works until 5 pm, Karla Montano (gdtr) [phone]. [facility] olutr will be able to contact patient's spouse during day time hours. [phone] [phone], . DCP- Discharge Planning Updated by [id number]: Tracey Gill on 12/10/19 3:[address] Patient Name: JUDIE LOPES Admission Status: ER Accout number: [id number] Admission Date: 12-05-2019 : 1955 Admission Diagnosis:ACUTE KIDNEY FAILURE, UNSPECIFIED Attending: Kelsey Quispe Current LOS: 5 Anticipated DC Date: Planned Disposition: Inpatient Rehab Primary Insurance: MEDICARE A & B Discharge Planning Comments: CM met with patient to discuss discharge planning/needs. States she lives with her in a single story home. States she has gotten very weak and is requesting inpatient rehab at [facility] prior to discharging home. ZULEYKA for [facility] signed and rehab screen ordered. I have also ordered a PT eval. She states that she uses her walker for ambulation. She will be set up at [facility] in [place] for dialysis. I spoke with Samanta Weiner, OP dialysis coordinator, and she states she has a chair for her, but will let us know date and time when she is ready for DC. I notified Samanta that patient is requesting inpatient rehab prior to discharge. CM will continue to follow and assist with discharge planning/needs. #[id number] Pig Farmer: Tracey Gill DCPIA - Discharge Planning Initial Assessment Updated by [id number]: Tracey Gill on 12/10/19 4:39 pm * Is the patient Alert and Oriented? Yes * How many steps to enter\exit or inside your home? 4/0 * PCP Dr. Lacey in [place] * Pharmacy [facility] in [place] * Preadmission Environment Home with Family * ADLs Partial Dependent * Partial ADLs (Assistance needed) Ambulation * Equipment Glucometer Other * Other Equipment Rollator walker * List name and contact numbers for known caregivers / representatives who currently or will assist patient after discharge: Alton Lopes - spouse - [phone] * Verbal permission to speak to the caregivers and representatives has been obtained from the patient. Yes * Community resources currently utilized Home Health * Please name any agencies selected above. unknown home health agency * Additional services required to return to the preadmission environment? Yes * Can the patient safely return to the preadmission environment? Yes * Has this patient been hospitalized within the prior 30 days at any hospital? Yes Coverage Notice Reviewer: [id number] - Elise Gomez Notice Issued Date-Time: 12/11/2019 10:34 Notice Type: Patient Choice Letter Notice Delivered To: Patient Relationship to Patient: Self Rewinder Name: Judie Lopes Delivery Method: HAND - Hand Delivered Sue Days: Prior Verbal Notification: Recipient Understood Notice: Yes Recipient Signature: Yes Med Rec Note Co-signed by Attending: Coverage Notice Comment: Patient Choice for [facility] signed/provided for patient. Copy to chart. Reviewer: [id number] Gill Notice Issued Date-Time: 12/10/2019 16:43 Notice Type: Patient Choice Letter Notice Delivered To: Patient Relationship to Patient: Self Rewinder Name: Delivery Method: HAND - Hand Delivered Sue Days: Prior Verbal Notification: Recipient Understood Notice: Yes Recipient Signature: Yes Med Rec Note Co-signed by Attending: Coverage Notice Comment: ZULEYKA for inpatient rehab at [facility] Reviewer: [id number] Gill Notice Issued Date-Time: 12/10/2019 16:43 Notice Type: IM Discharge Notice Notice Delivered To: Patient Relationship to Patient: Self Rewinder Name: Delivery Method: HAND - Hand Delivered Sue Days: Prior Verbal Notification: Recipient Understood Notice: Yes Recipient Signature: Yes Med Rec Note Co-signed by Attending: Coverage Notice Comment: IMM explained, signed, given, copy placed in MR Last DP export: 12/11/19 2:25 pm Patient Name: JUDIE LOPES Page 00993 at 1532 All edits/amendments must be made on the electronic document DICTATION DATE: 12/11/191530 COPPER MINER: LAUREN 12/11/191530 RPT#: [id number] DC DATE: STATUS: ADM IN [facility] [address] [place] [address] END OF REPORT
--- NOTE | 2019-12-11 19:31 | NUR ---
REPORT RECEIVED, WILL CONTINUE POC. PATIENT IS AAOX4, SITTING UP IN CHAIR. NO S/S OF DISTRESS OBSERVED, RR EVEN AND UNLABORED ON ROOM AIR. PATIENT REQUESTING TO GET BACK INTO BED WHENEVER THE SWEET DOUGH MIXER COMES TO ASSESS HER VITALS. MADE SWEET DOUGH MIXER AWARE. PATIENT DENIES FURTHER NEEDS AT THIS TIME. CL IN REACH, BED LOCKED AND LOWERED. WILL CTM.
[2019-12-11 20:00] VITALS: BP 155/77
[2019-12-12 04:00] VITALS: BP 148/63
[2019-12-12 05:02] LABS: BASOPHILS 0.2 % (0-2); EOSINOPHILS 4.3 % (0-7); HEMOGLOBIN 9.4 g/dL (12-16); IMMATURE GRANULOCYTES 0.3 % (0-5); LYMPHOCYTES 19.3 % (15-50); MCH 26.6 pg (26.0-34.0); MCHC 31.3 g/dL (31.0-37.0); MEAN PLATELET VOLUME 10.3 fL (7.4-10.4); MONOCYTES 7.2 % (2-11); NEUTROPHILS 68.7 % (40-80); PLATELET COUNT 289 10x3/uL (130-400); RBC 3.53 10x6/uL (4.00-5.40); RDW 14.3 % (11.5-14.5)
[2019-12-12 05:19] LABS: ALBUMIN 2.9 g/dL (3.4-5.0); ANION GAP 17.6 mmol/L (8-16); BILIRUBIN - TOTAL 0.5 mg/dL (0.2-1.3); CALCIUM 8.6 mg/dL (8.5-10.1); CARBON DIOXIDE 23.4 mmol/L (21.0-32.0); CREATININE - SERUM 3.3 mg/dL (0.6-1.3); PHOSPHOROUS 5.4 mg/dL (2.5-4.9); PROTEIN - SERUM 7.4 g/dL (6.4-8.2); WBC 12.7 10x3/uL (4.8-10.8)
[2019-12-12 10:17] VITALS: BP 145/67
--- NOTE | 2019-12-12 11:55 | NUR ---
REENFORCED LEFT WRIST DRESSING WITH 4X4'S AND WRAPPED WITH KERLIX.
--- NOTE | 2019-12-12 12:56 | NUR ---
U/S GB ORDERED AT 1249. I SPOKE TO PT WHO SAYS SHE JUST ATE LUNCH. PT WILL HAVE TO BE HELD NPO AT MIDNIGHT AND STUDY TO BE DONE IN AM. FLOOR NOTIFIED. LEN ERNST
[2019-12-12 14:42] VITALS: BP 166/66
[2019-12-12] MEDS ORDERED: ZOLOFT100 MG (15:16)
--- NOTE | 2019-12-12 15:18 | NUR ---
PT WANTS ZOLOFT 100MG DAILY RESTARTED. SPOKE WITH NATALY JUAREZ AND SHE STATES TO RESTART. I VERBALZIED UNDERSTANDING.
[2019-12-12 17:08] LABS: OVA + PARASITE EXAM Final report (())
--- NOTE | 2019-12-12 18:05 | NUR ---
PT HAS NOT HAD A BM SINCE STOOL COLLECTION WAS ORDERED.
[2019-12-12 18:14] VITALS: BP 189/65
--- NOTE | 2019-12-12 19:30 | NUR ---
PT IN BED, AAO X 3, RESP EVEN AND UNLABORED. NO DISTRESS NOTED, CL IN REACH, SR UP X 2.
[2019-12-12 21:21] VITALS: BP 155/56
[2019-12-13 00:01] VITALS: BP 172/73
--- NOTE | 2019-12-13 03:32 | NUR ---
I have reviewed this patient and I concur with the Shift Assessment completed by the Licensed Practical Nurse today this shift.
[2019-12-13 04:00] VITALS: BP 171/71
[2019-12-13 04:59] LABS: HEMATOCRIT 30.5 % (36.0-48.0); HEMOGLOBIN 9.8 g/dL (12-16); MCH 26.7 pg (26.0-34.0); MCHC 32.1 g/dL (31.0-37.0); MCV 83.1 fL (80.0-100.0); MEAN PLATELET VOLUME 10.2 fL (7.4-10.4); PLATELET COUNT 345 10x3/uL (130-400); RBC 3.67 10x6/uL (4.00-5.40); RDW 13.9 % (11.5-14.5)
[2019-12-13 05:18] LABS: ANION GAP 16.1 mmol/L (8-16); BILIRUBIN - TOTAL 0.47 mg/dL (0.2-1.3); CALCIUM 8.7 mg/dL (8.5-10.1); CARBON DIOXIDE 23.9 mmol/L (21.0-32.0); CREATININE - SERUM 4.1 mg/dL (0.6-1.3); PROTEIN - SERUM 7.7 g/dL (6.4-8.2)
[2019-12-13 05:57] LABS: LYMPHOCYTES 22 % (15-50); MONOCYTES 4 % (2-11); NEUTROPHILS 74 % (40-80); PLATELET ESTIMATE NORMAL
[2019-12-13 08:25] VITALS: BP 178/64
--- NOTE | 2019-12-13 15:09 | NUR ---
PT RETURNED FROM DIALYSIS VIA BED. CRISTAL ROB IN DIALYSIS STATES THEY DID NOT REMOVE ANYTHING THEY JUST CLEANED. I VERBALIZED UNDERSTANDING.
[2019-12-13 16:38] VITALS: BP 180/67
--- NOTE | 2019-12-13 17:00 | NUR ---
PT STATES HER LEFT WRIST AV FISTULA IS SORE AND WANTS AN ICE PACK ON IT. SPOKE WITH JOSELYN JUAREZ AND SHE STATES AN ICE PACK IS OK AND TO GIVE PAIN MEDICATION NEEDED. I VERBALIZED UNDERSTANDING.
--- NOTE | 2019-12-13 17:05 | NUR ---
ICE PACK APPLIED TO THE LEFT WRIST.
--- NOTE | 2019-12-13 17:24 | NUR ---
I have reviewed this patient and I concur with the Shift Assessment completed by the Licensed Practical Nurse today this shift.
[2019-12-13 20:00] VITALS: BP 179/72
[2019-12-14] VITALS: BP 143/53
[2019-12-14 04:00] VITALS: BP 160/64
[2019-12-14 05:46] LABS: HEMATOCRIT 29.3 % (36.0-48.0); HEMOGLOBIN 9.4 g/dL (12-16); LYMPHOCYTES 13.7 % (15-50); MCH 26.6 pg (26.0-34.0); MCHC 32.1 g/dL (31.0-37.0); MCV 82.8 fL (80.0-100.0); MEAN PLATELET VOLUME 10.2 fL (7.4-10.4); NEUTROPHILS 78.1 % (40-80); PLATELET COUNT 335 10x3/uL (130-400); RBC 3.54 10x6/uL (4.00-5.40); RDW 13.7 % (11.5-14.5); WBC 18.8 10x3/uL (4.8-10.8)
[2019-12-14 05:58] LABS: ALBUMIN 2.8 g/dL (3.4-5.0); ANION GAP 14.6 mmol/L (8-16); BILIRUBIN - TOTAL 0.46 mg/dL (0.2-1.3); CALCIUM 8.4 mg/dL (8.5-10.1); CARBON DIOXIDE 23.5 mmol/L (21.0-32.0); CREATININE - SERUM 3.3 mg/dL (0.6-1.3); PHOSPHOROUS 3.5 mg/dL (2.5-4.9); POTASSIUM - SERUM 3.1 mmol/L (3.5-5.1); PROTEIN - SERUM 7.3 g/dL (6.4-8.2)
--- NOTE | 2019-12-14 08:00 | NUR ---
PT SITTING UP, RESTING, RR EVEN AND UNLABORED. DENIES NEEDS OR PAIN AT THIS TIME. PT STATES SHE WANTS A SHOWER. WAS REASSURED THAT SHE WOULD HAVE A SHOWER TODAY. BED IN LOWEST POSITION. CALL LIGHT WITHIN REACH. WILL CONTINUE TO MONITOR.
[2019-12-14 08:26] VITALS: BP 135/60
--- NOTE | 2019-12-14 11:00 | NUR ---
SHOWER RECIEVED, LINENS AND GOWN CHANGED. DRESSING TO LEFT FOREARM CHANGED, CDI. ASSISTED BACK TO BED. CALL LIGHT WITHIN REACH. BED IN LOWEST POSITION.
[2019-12-14 12:49] VITALS: BP 146/54
[2019-12-14 15:59] VITALS: BP 154/61
--- NOTE | 2019-12-14 17:19 | NUR ---
I have reviewed this patient and I concur with the Shift Assessment completed by the Licensed Practical Nurse today this shift.
--- NOTE | 2019-12-14 19:41 | NUR ---
RECEIVED REPORT, WILL ASSUME CARE OF PT, WATCHING TV, DENIES ANY NEEDS AT THIS TIME, BED IS LOW, SRX2, CALL LIGHT IN REACH, WILL CONTINUE PLAN OF CARE
[2019-12-14 20:00] VITALS: BP 161/51
[2019-12-15] VITALS: BP 148/62
--- NOTE | 2019-12-15 03:45 | NUR ---
I have reviewed this patient and I concur with the Shift Assessment completed by the Licensed Practical Nurse today this shift.
[2019-12-15 04:00] VITALS: BP 115/50
[2019-12-15 05:52] LABS: ALBUMIN 2.6 g/dL (3.4-5.0); ANION GAP 15.2 mmol/L (8-16); BILIRUBIN - TOTAL 0.28 mg/dL (0.2-1.3); CARBON DIOXIDE 22.7 mmol/L (21.0-32.0); CREATININE - SERUM 3.4 mg/dL (0.6-1.3); PROTEIN - SERUM 6.7 g/dL (6.4-8.2)
[2019-12-15 06:05] LABS: POTASSIUM - SERUM 2.9 mmol/L (3.5-5.1)
--- NOTE | 2019-12-15 07:15 | NUR ---
REPORT RECEVED FROM COORDINATE MEASURING MACHINE OPERATOR AND PATIENT CARE ASSUMED. PAIENT SITTING UP IN BED AWAKE, ALERT AND ORIENTED X 4. PATIENT IS STABLE AND VSS. PATIENT DENIES ANY NEEDS OR PAIN. WILL CONTINUE WITH PLAN OF CARE. SR UP X 2 BED IN LOW POSITION AND CALL LIGHT IN REACH.
[2019-12-15 08:02] LABS: LIPASE 145 U/L (73-393); PRO BNP 1657 pg/mL (0-125)
[2019-12-15 08:11] LABS: HEMATOCRIT 27.8 % (36.0-48.0); HEMOGLOBIN 8.8 g/dL (12-16); MCHC 31.7 g/dL (31.0-37.0); MCV 85.3 fL (80.0-100.0); MEAN PLATELET VOLUME 9.6 fL (7.4-10.4); PLATELET COUNT 354 10x3/uL (130-400); RBC 3.26 10x6/uL (4.00-5.40); WBC 20.6 10x3/uL (4.8-10.8)
[2019-12-15 08:35] VITALS: BP 155/51
--- NOTE | 2019-12-15 10:41 | NUR ---
Nutrition Follow-up: Ate majority of breakfast this AM. Denies nausea currently but continues to report nausea with HD. Last HD on Sat (12/12). Did not try Nepro on day of last visit; agreed to try at lunch today. Noted diet liberalized from renal ADA to Diabetic. Diet: Diabetic PO intake: 0-100% Wt: 251.3# (12/12); 266.7# (12/08) Last BM: 12/13 (loose) Labs noted: K+ 2.9, Glu 234, Ca 8.0, Alb 2.6 Meds noted: Glucotrol, Protonix, Zofran, Folate, Humulin -Encourage PO intake and honor food preferences within diet restrictions. -Send Nepro with lunch today for pt trial. -Monitor wt; noted daily wts ordered. -RD following.
--- NOTE | 2019-12-15 11:13 | NUR ---
PATIENT UP WITH PT. TOLERATING WELL. PATIENT BACK TO BS CHAIR. PATIENT IS STABLE AND VSS. PATIENT DENIES ANY NEEDS OR PAIN. WILL CONTINUE TO MONITOR. CALL LIGHT IN REACHY.
[2019-12-15 11:21] LABS: ANISOCYTOSIS OCC; CRENATED CELLS 1+; EOSINOPHILS 3 % (0-7); LYMPHOCYTES 24 % (15-50); MONOCYTES 9 % (2-11); NEUTROPHILS 64 % (40-80); PLATELET ESTIMATE INCREASED; PLATELET MORPHOLOGY PLT CLUMPS PRESENT
[2019-12-15 11:22] LABS: ACANTHOCYTES OCC; POIKILOCYTOSIS OCC; SMUDGE CELLS OCC
--- NOTE | 2019-12-15 12:11 | NUR ---
OT NOTE: PT PERFORMED VERY WELL TODAY. AMB IN ROOM WITH WALKER AND SBA; TOILET TRANSFERS AND HYGIENE WITH SBA; SIMPLE GROOMING WITH SET UP; AMB GREATER THAN 175 FT WITH ROLATER AND SBA TO IMPROVE FUNCITONAL ENDURANCE. PT REPORTED FATIGUE BUT DID NOT REQUIRE REST BREAK. PRASANNA MUÑIZ, OTR/L [phone]
[2019-12-15 13:15] VITALS: BP 185/71
--- NOTE | 2019-12-15 13:44 | MORECARE ---
CASE MANAGEMENT DISCHARGE SUMMARY PATIENT: MARIANA LOPES UNIT: [id number] ADM DATE: 12/05/19 AGE: 64 : 59 SEX: F ROOM/BED: D.2101 AUTHOR: DONTAE,DOC PHYSICIAN: REFERRING PHYSICIAN: KELSEY QUISPE MD DATE OF SERVICE: 12/15/19 Discharge Plan Patient Name: MARIANA LOPES Facility: [facility]:[place] : 1955 Planned Disposition: Inpatient Rehab Anticipated Discharge Date: Discharge Date: Expected LOS: Initial Reviewer: [id number] Initial Review Date: 12/10/2019 Generated: 12/15/19 2:43 pm DCP- Discharge Planning Updated by [email or web address]: Elise Gomez on 12/11/19 2:[address] Rehab order obtained. Provided patient with choices of Rehab @[facility], [facility], [facility] or [facility]. Patient's choice is [facility]. Patient Choice signed, original to patient and copy to the chart. CM Contacted Marjorie, with [facility]#[phone], provided initial information and faxed available information to Marjorie @[phone]. Per Rehab, they will provide HD on their 4th floor. We are pending PT/OT evaluations. Received Patient's Welcome Letter for HD [facility] obtained and provided/explained to the patient. HD schedule: M/W/F @4:00 pm. First appointment Thursday December 12, 2019 @3:00 pm for paperwork. Copy placed on the chart. Family contact: Alton Lopes (spouse)( H)[phone] works until 5 pm, Karla Montano (gdtr) [phone]. [facility] olutr will be able to contact patient's spouse during day time hours. [phone] fax[facility][phone], . DCP- Discharge Planning Updated by [id number]: Tracey Gill on 12/10/19 3:[address] Patient Name: MARIANA LOPES Admission Status: ER Accout number: [id number] Admission Date: 12-05-2019 : 1955 Admission Diagnosis:ACUTE KIDNEY FAILURE, UNSPECIFIED Attending: Kelsey Quispe Current LOS: 5 Anticipated DC Date: Planned Disposition: Inpatient Rehab Primary Insurance: MEDICARE A & B Discharge Planning Comments: CM met with patient to discuss discharge planning/needs. States she lives with her in a single story home. States she has gotten very weak and is requesting inpatient rehab at [facility] prior to discharging home. ZULEYKA for [facility] signed and rehab screen ordered. I have also ordered a PT eval. She states that she uses her walker for ambulation. She will be set up at [facility] in [place] for dialysis. I spoke with Samanta Weiner, OP dialysis coordinator, and she states she has a chair for her, but will let us know date and time when she is ready for DC. I notified Samanta that patient is requesting inpatient rehab prior to discharge. CM will continue to follow and assist with discharge planning/needs. #[phone] Event Representative: Tracey Gill DCPIA - Discharge Planning Initial Assessment Updated by [email or web address]: Tracey Gill on 12/10/19 4:39 pm * Is the patient Alert and Oriented? Yes * How many steps to enter\exit or inside your home? 4/0 * PCP Dr. Lacey in [place] * Pharmacy [facility] in [place] * Preadmission Environment Home with Family * ADLs Partial Dependent * Partial ADLs (Assistance needed) Ambulation * Equipment Glucometer Other * Other Equipment Rollator walker * List name and contact numbers for known caregivers / representatives who currently or will assist patient after discharge: Alton Lopes - spouse - [phone] * Verbal permission to speak to the caregivers and representatives has been obtained from the patient. Yes * Community resources currently utilized Home Health * Please name any agencies selected above. unknown home health agency * Additional services required to return to the preadmission environment? Yes * Can the patient safely return to the preadmission environment? Yes * Has this patient been hospitalized within the prior 30 days at any hospital? Yes External Providers External Provider: [facility] Next Contact Date: Service Request Date: Service Type: Resolution: Reviewer: Comments: Coverage Notice Reviewer: [id number] Kaya Gill Notice Issued Date-Time: 12/10/2019 16:43 Notice Type: IM Discharge Notice Notice Delivered To: Patient Relationship to Patient: Self Sheet Mill Supervisor Name: Delivery Method: HAND - Hand Delivered Sue Days: Prior Verbal Notification: Recipient Understood Notice: Yes Recipient Signature: Yes Med Rec Note Co-signed by Attending: Coverage Notice Comment: IMM explained, signed, given, copy placed in MR Reviewer: [id number] Kaya Gill Notice Issued Date-Time: 12/10/2019 16:43 Notice Type: Patient Choice Letter Notice Delivered To: Patient Relationship to Patient: Self Sheet Mill Supervisor Name: Delivery Method: HAND - Hand Delivered Sue Days: Prior Verbal Notification: Recipient Understood Notice: Yes Recipient Signature: Yes Med Rec Note Co-signed by Attending: Coverage Notice Comment: ZULEYKA for inpatient rehab at [facility] Reviewer: [id number] Kaya Gomez Notice Issued Date-Time: 12/11/2019 10:34 Notice Type: Patient Choice Letter Notice Delivered To: Patient Relationship to Patient: Self Sheet Mill Supervisor Name: Mariana Lopes Delivery Method: HAND - Hand Delivered Sue Days: Prior Verbal Notification: Recipient Understood Notice: Yes Recipient Signature: Yes Med Rec Note Co-signed by Attending: Coverage Notice Comment: Patient Choice for [facility] signed/provided for patient. Copy to chart. Last DP export: 12/11/19 2:32 pm Patient Name: MARIANA LOPES Page [id number] at 1344 All edits/amendments must be made on the electronic document DICTATION DATE: 12/15/19 1343 EXPLOSIVE ORDNANCE DISPOSAL SPECIALIST: LAUREN 12/15/19 1343 RPT#: [id number] DC DATE: STATUS: ADM IN [facility] [address] [place] [address] END OF REPORT
--- NOTE | 2019-12-15 14:07 | NUR ---
NO SKIN BREAKDOWN IS NOTED. PT IS AT RISK DUE TO HER LENGTH OF STAY. WOUND CARE WILL CONTINUE MONITORING.
--- NOTE | 2019-12-15 14:15 | MORECARE ---
CASE MANAGEMENT DISCHARGE SUMMARY PATIENT: MARIANA LOPES UNIT: [id number] ADM DATE: 12/05/19 AGE: 64 : 59 SEX: F ROOM/BED: D.2538 AUTHOR: DONTAE,DOC PHYSICIAN: REFERRING PHYSICIAN: KELSEY QUISPE MD DATE OF SERVICE: 12/15/19 Discharge Plan Patient Name: MARIANA LOPES Facility: [facility]:[place] : 1955 Planned Disposition: Inpatient Rehab Anticipated Discharge Date: Discharge Date: Expected LOS: Initial Reviewer: [id number] Initial Review Date: 12/10/2019 Generated: 12/15/19 3:14 pm Comments DCP- Discharge Planning Updated by [id number]: Tracey Gill on 12/15/19 1:[address] I spoke with Nadya at [facility]patient rehab at [facility] in [place]. Nadya states that she has not received a fax or a consult on this patient. I faxed clinical to her at this time. I spoke with the patient, she is anticipating discharging on Sunday. CM will continue to follow and assist with discharge planning/needs. DCP- Discharge Planning Updated by [id number]: Elise Gomez on 12/11/19 2:[address] Rehab order obtained. Provided patient with choices of Rehab @[facility], [facility], [facility] or [facility]. Patient's choice is [facility]. Patient Choice signed, original to patient and copy to the chart. CM Contacted Marjorie, with [facility]#[phone], provided initial information and faxed available information to Marjroie @[phone]. Per Rehab, they will provide HD on their 4th floor. We are pending PT/OT evaluations. Received Patient's Welcome Letter for HD [facility] obtained and provided/explained to the patient. HD schedule: M/W/F @4:00 pm. First appointment Thursday December 12, 2019 @3:00 pm for paperwork. Copy placed on the chart. Family contact: Alton Lopes (spouse)( H)[phone] works until 5 pm, Karla Montano (gdtr) [phone]. [facility] gdtr will be able to contact patient's spouse during day time hours. [phone] faxed chart information to Marjorie with [facility] #[phone], . DCP- Discharge Planning Updated by [id number]: Tracey Gill on 12/10/19 3:[address] Patient Name: MARIANA LOPES Admission Status: ER Accout number: [id number] Admission Date: 12-05-2019 : 1955 Admission Diagnosis:ACUTE KIDNEY FAILURE, UNSPECIFIED Attending: Kelsey Quispe Current LOS: 5 Anticipated DC Date: Planned Disposition: Inpatient Rehab Primary Insurance: MEDICARE A & B Discharge Planning Comments: CM met with patient to discuss discharge planning/needs. States she lives with her in a single story home. States she has gotten very weak and is requesting inpatient rehab at [facility] prior to discharging home. ZULEYKA for [facility] signed and rehab screen ordered. I have also ordered a PT eval. She states that she uses her walker for ambulation. She will be set up at [facility] in [place] for dialysis. I spoke with Samanta Weiner, OP dialysis coordinator, and she states she has a chair for her, but will let us know date and time when she is ready for DC. I notified Samanta that patient is requesting inpatient rehab prior to discharge. CM will continue to follow and assist with discharge planning/needs. #[phone] Spray Gun Sizer: Tracey Gill DCPIA - Discharge Planning Initial Assessment Updated by [id number]: Tracey Gill on 12/10/19 4:39 pm * Is the patient Alert and Oriented? Yes * How many steps to enter\exit or inside your home? 4/0 * PCP Dr. Lacey in [place] * Pharmacy [facility] in [place] * Preadmission Environment Home with Family * ADLs Partial Dependent * Partial ADLs (Assistance needed) Ambulation * Equipment Glucometer Other * Other Equipment Rollator walker * List name and contact numbers for known caregivers / representatives who currently or will assist patient after discharge: Alton Lopes - spouse - [phone] * Verbal permission to speak to the caregivers and representatives has been obtained from the patient. Yes * Community resources currently utilized Home Health * Please name any agencies selected above. unknown home health agency * Additional services required to return to the preadmission environment? Yes * Can the patient safely return to the preadmission environment? Yes * Has this patient been hospitalized within the prior 30 days at any hospital? Yes Coverage Notice Reviewer: [id number] Kaya Gomez Notice Issued Date-Time: 12/11/2019 10:34 Notice Type: Patient Choice Letter Notice Delivered To: Patient Relationship to Patient: Self Piledriver Carpenter Name: Mariana Lopes Delivery Method: HAND - Hand Delivered Sue Days: Prior Verbal Notification: Recipient Understood Notice: Yes Recipient Signature: Yes Med Rec Note Co-signed by Attending: Coverage Notice Comment: Patient Choice for [facility] signed/provided for patient. Copy to chart. Reviewer: [id number] Kaya Gill Notice Issued Date-Time: 12/10/2019 16:43 Notice Type: Patient Choice Letter Notice Delivered To: Patient Relationship to Patient: Self Piledriver Carpenter Name: Delivery Method: HAND - Hand Delivered Sue Days: Prior Verbal Notification: Recipient Understood Notice: Yes Recipient Signature: Yes Med Rec Note Co-signed by Attending: Coverage Notice Comment: ZULEYKA for inpatient rehab at [facility] Reviewer: [id number] Kaya Gill Notice Issued Date-Time: 12/10/2019 16:43 Notice Type: IM Discharge Notice Notice Delivered To: Patient Relationship to Patient: Self Piledriver Carpenter Name: Delivery Method: HAND - Hand Delivered Sue Days: Prior Verbal Notification: Recipient Understood Notice: Yes Recipient Signature: Yes Med Rec Note Co-signed by Attending: Coverage Notice Comment: IMM explained, signed, given, copy placed in MR Last DP export: 12/15/19 12:44 p Patient Name: MARIANA LOPES Page [phone] at 1415 All edits/amendments must be made on the electronic document DICTATION DATE: 12/15/191413 SPEECH TEACHER: LAUREN 12/15/191413 RPT#: [id number] DC DATE: STATUS: ADM IN [facility] [address] [place] [address] END OF REPORT
--- NOTE | 2019-12-15 15:33 | MORECARE ---
CASE MANAGEMENT DISCHARGE SUMMARY PATIENT: JUDIE LOPES UNIT: [id number] ADM DATE: 12/05/19 AGE: 64 : 59 SEX: F ROOM/BED: D.4369 AUTHOR: DONTAE,DOC PHYSICIAN: REFERRING PHYSICIAN: KELSEY QUISPE MD DATE OF SERVICE: 12/15/19 Discharge Plan Patient Name: JUDIE LOPES Facility: [facility]:[place] : 1955 Planned Disposition: Inpatient Rehab Anticipated Discharge Date: Discharge Date: Expected LOS: Initial Reviewer: [id number] Initial Review Date: 12/10/2019 Generated: 12/15/19 4:33 pm Comments DCP- Discharge Planning Updated by [id number]: Tracey Gill on 12/15/19 1:[address] I spoke with Nadya at Inpatient rehab at [facility] in [place]. Nadya states that she has not received a fax or a consult on this patient. I faxed clinical to her at this time. I spoke with the patient, she is anticipating discharging on Sunday. CM will continue to follow and assist with discharge planning/needs. DCP- Discharge Planning Updated by [id number]: Elise Gomez on 12/11/19 2:[address] Rehab order obtained. Provided patient with choices of Rehab @[facility], [facility], [facility] or [facility]. Patient's choice is [facility]. Patient Choice signed, original to patient and copy to the chart. CM Contacted Marjorie, with [facility]#[phone], provided initial information and faxed available information to Marjorie @[phone]. Per Rehab, they will provide HD on their 4th floor. We are pending PT/OT evaluations. Received Patient's Welcome Letter for HD [facility] obtained and provided/explained to the patient. HD schedule: M/W/F @4:00 pm. First appointment Thursday December 12, 2019 @3:00 pm for paperwork. Copy placed on the chart. Family contact: Alton Lopes (spouse)( H)[phone] works until 5 pm, Karla Montano (gdtr) [phone]. [facility] gdtr will be able to contact patient's spouse during day time hours. [phone] faxed chart information to Marjorie with [facility] #[phone], . DCP- Discharge Planning Updated by [id number]: Tracey Gill on 12/10/19 3:[address] Patient Name: JUDIE LOPES Admission Status: ER Accout number: [id number] Admission Date: 12-05-2019 : 1955 Admission Diagnosis:ACUTE KIDNEY FAILURE, UNSPECIFIED Attending: Kelsey Quispe Current LOS: 5 Anticipated DC Date: Planned Disposition: Inpatient Rehab Primary Insurance: MEDICARE A & B Discharge Planning Comments: CM met with patient to discuss discharge planning/needs. States she lives with her in a single story home. States she has gotten very weak and is requesting inpatient rehab at [facility] prior to discharging home. ZULEYKA for [facility] signed and rehab screen ordered. I have also ordered a PT eval. She states that she uses her walker for ambulation. She will be set up at [facility] in [place] for dialysis. I spoke with Samanta Weiner, OP dialysis coordinator, and she states she has a chair for her, but will let us know date and time when she is ready for DC. I notified Samanta that patient is requesting inpatient rehab prior to discharge. CM will continue to follow and assist with discharge planning/needs. #[phone] Snow Plow Tractor Operator: Tracey Gill DCPIA - Discharge Planning Initial Assessment Updated by [id number]: Tracey Gill on 12/10/19 4:39 pm * Is the patient Alert and Oriented? Yes * How many steps to enter\exit or inside your home? 4/0 * PCP Dr. Lacey in [place] * Pharmacy [facility] in [place] * Preadmission Environment Home with Family * ADLs Partial Dependent * Partial ADLs (Assistance needed) Ambulation * Equipment Glucometer Other * Other Equipment Rollator walker * List name and contact numbers for known caregivers / representatives who currently or will assist patient after discharge: Alton Lopes - spouse - [phone] * Verbal permission to speak to the caregivers and representatives has been obtained from the patient. Yes * Community resources currently utilized Home Health * Please name any agencies selected above. unknown home health agency * Additional services required to return to the preadmission environment? Yes * Can the patient safely return to the preadmission environment? Yes * Has this patient been hospitalized within the prior 30 days at any hospital? Yes External Providers External Provider: [facility] Next Contact Date: Service Request Date: Service Type: Resolution: Reviewer: Comments: Coverage Notice Reviewer: [id number] Gill Notice Issued Date-Time: 12/10/2019 16:43 Notice Type: IM Discharge Notice Notice Delivered To: Patient Relationship to Patient: Self School Administrator Name: Delivery Method: HAND - Hand Delivered Sue Days: Prior Verbal Notification: Recipient Understood Notice: Yes Recipient Signature: Yes Med Rec Note Co-signed by Attending: Coverage Notice Comment: IMM explained, signed, given, copy placed in MR Reviewer: [id number] Gill Notice Issued Date-Time: 12/10/2019 16:43 Notice Type: Patient Choice Letter Notice Delivered To: Patient Relationship to Patient: Self School Administrator Name: Delivery Method: HAND - Hand Delivered Sue Days: Prior Verbal Notification: Recipient Understood Notice: Yes Recipient Signature: Yes Med Rec Note Co-signed by Attending: Coverage Notice Comment: ZULEYKA for inpatient rehab at [facility] Reviewer: [id number] Kaya Gomez Notice Issued Date-Time: 12/11/2019 10:34 Notice Type: Patient Choice Letter Notice Delivered To: Patient Relationship to Patient: Self School Administrator Name: Judie Lopes Delivery Method: HAND - Hand Delivered Sue Days: Prior Verbal Notification: Recipient Understood Notice: Yes Recipient Signature: Yes Med Rec Note Co-signed by Attending: Coverage Notice Comment: Patient Choice for [facility] signed/provided for patient. Copy to chart. Last DP export: 12/15/19 1:15 p Patient Name: JUDIE LOPES Page [id number] at 1533 All edits/amendments must be made on the electronic document DICTATION DATE: 12/15/191532 RAIL TRANSIT OPERATOR: LAUREN 12/15/191532 RPT#: [id number] DC DATE: STATUS: ADM IN [facility] [address] [facility] [place] [address] END OF REPORT
--- NOTE | 2019-12-15 15:42 | MORECARE ---
CASE MANAGEMENT DISCHARGE SUMMARY PATIENT: MARIANA LOPES UNIT: [id number] ADM DATE: 12/05/19 AGE: 64 : 59 SEX: F ROOM/BED: D.3524 AUTHOR: DONTAE,DOC PHYSICIAN: REFERRING PHYSICIAN: KELSEY QUISPE MD DATE OF SERVICE: 12/15/19 Discharge Plan Patient Name: MARIANA LOPES Facility: [facility]:[place] : 1955 Planned Disposition: Inpatient Rehab Anticipated Discharge Date: Discharge Date: Expected LOS: Initial Reviewer: [id number] Initial Review Date: 12/10/2019 Generated: 12/15/19 4:41 pm Comments DCP- Discharge Planning Updated by [email or web address]: Tracey Gill on 12/15/19 1:[address] I spoke with Nadya at Inpatient rehab at [facility] in [place]. Nadya states that she has not received a fax or a consult on this patient. I faxed clinical to her at this time. I spoke with the patient, she is anticipating discharging on Sunday. CM will continue to follow and assist with discharge planning/needs. DCP- Discharge Planning Updated by [id number]: Elise Gomez on 12/11/19 2:[address] Rehab order obtained. Provided patient with choices of Rehab @[employer], [facility], [facility] or [facility]. Patient's choice is [facility]. Patient Choice signed, original to patient and copy to the chart. CM Contacted Marjorie, with [facility]#[phone], provided initial information and faxed available information to Marjorie @[phone]. Per Rehab, they will provide HD on their 4th floor. We are pending PT/OT evaluations. Received Patient's Welcome Letter for HD [facility] obtained and provided/explained to the patient. HD schedule: M/W/F @4:00 pm. First appointment Thursday December 12, 2019 @3:00 pm for paperwork. Copy placed on the chart. Family contact: Alton Lopes (spouse)( H)[phone] works until 5 pm, Karla Montano (gdtr) [phone]. [facility] gdtr will be able to contact patient's spouse during day time hours. [phone] faxed chart information to Marjorie with [facility] #[phone], . DCP- Discharge Planning Updated by [email or web address]: Tracey Gill on 12/10/19 3:[address] Patient Name: MARIANA LOPES Admission Status: ER Accout number: [id number] Admission Date: 12-05-2019 : 1955 Admission Diagnosis:ACUTE KIDNEY FAILURE, UNSPECIFIED Attending: Kelsey Quispe Current LOS: 5 Anticipated DC Date: Planned Disposition: Inpatient Rehab Primary Insurance: MEDICARE A & B Discharge Planning Comments: CM met with patient to discuss discharge planning/needs. States she lives with her in a single story home. States she has gotten very weak and is requesting inpatient rehab at [facility] prior to discharging home. ZULEYKA for [facility] signed and rehab screen ordered. I have also ordered a PT eval. She states that she uses her walker for ambulation. She will be set up at [facility] in [place] for dialysis. I spoke with Samanta Weiner, OP dialysis coordinator, and she states she has a chair for her, but will let us know date and time when she is ready for DC. I notified Samanta that patient is requesting inpatient rehab prior to discharge. CM will continue to follow and assist with discharge planning/needs. #[phone] Entry Level Account Manager: Tracey Gill DCPIA - Discharge Planning Initial Assessment Updated by [email or web address]: Tracey Gill on 12/10/19 4:39 pm * Is the patient Alert and Oriented? Yes * How many steps to enter\exit or inside your home? 4/0 * PCP Dr. Lacey in [place] * Pharmacy [facility] in [place] * Preadmission Environment Home with Family * ADLs Partial Dependent * Partial ADLs (Assistance needed) Ambulation * Equipment Glucometer Other * Other Equipment Rollator walker * List name and contact numbers for known caregivers / representatives who currently or will assist patient after discharge: Alton Lopes - spouse - [phone] * Verbal permission to speak to the caregivers and representatives has been obtained from the patient. Yes * Community resources currently utilized Home Health * Please name any agencies selected above. unknown home health agency * Additional services required to return to the preadmission environment? Yes * Can the patient safely return to the preadmission environment? Yes * Has this patient been hospitalized within the prior 30 days at any hospital? Yes External Providers External Provider: [facility] Next Contact Date: Service Request Date: Service Type: Resolution: Reviewer: Comments: Coverage Notice Reviewer: [id number] Kaya Gomez Notice Issued Date-Time: 12/11/2019 10:34 Notice Type: Patient Choice Letter Notice Delivered To: Patient Relationship to Patient: Self Bird Sitter Name: Mariana Lopes Delivery Method: HAND - Hand Delivered Sue Days: Prior Verbal Notification: Recipient Understood Notice: Yes Recipient Signature: Yes Med Rec Note Co-signed by Attending: Coverage Notice Comment: Patient Choice for [facility] signed/provided for patient. Copy to chart. Reviewer: [id number] Kaya Gill Notice Issued Date-Time: 12/10/2019 16:43 Notice Type: Patient Choice Letter Notice Delivered To: Patient Relationship to Patient: Self Bird Sitter Name: Delivery Method: HAND - Hand Delivered Sue Days: Prior Verbal Notification: Recipient Understood Notice: Yes Recipient Signature: Yes Med Rec Note Co-signed by Attending: Coverage Notice Comment: ZULEYKA for inpatient rehab at [facility] Reviewer: [id number] Kaya Gill Notice Issued Date-Time: 12/10/2019 16:43 Notice Type: IM Discharge Notice Notice Delivered To: Patient Relationship to Patient: Self Bird Sitter Name: Delivery Method: HAND - Hand Delivered Sue Days: Prior Verbal Notification: Recipient Understood Notice: Yes Recipient Signature: Yes Med Rec Note Co-signed by Attending: Coverage Notice Comment: IMM explained, signed, given, copy placed in MR Last DP export: 12/15/19 2:33 p Patient Name: MARIANA LOPES Page [id number] at 1542 All edits/amendments must be made on the electronic document DICTATION DATE: 12/15/19 154 BULB BRANDER: LAUREN 12/15/19 1541 RPT#: [id number] DC DATE: STATUS: ADM IN [facility] [address] [place] [address] END OF REPORT
--- NOTE | 2019-12-15 16:15 | NUR ---
OT NOTE: PT COMPLETED ADL MOB WITH SBA. PT COMPLETED HYGIENE TASKS AT SINK LEVEL WITH SBA. PT COMPLETED SITTING BALANCE AT EOB WITH SBA. PT COMPLETED SIT TO STAND WITH SBA. [phone] THANK YOU,LAMONTE HASKINS
--- NOTE | 2019-12-15 17:53 | NUR ---
PAIENT SITTING UP IN BEDSIDE CHAIR. PATIENT IS STABLE AND VSS. PATIENT DENIES ANY NEEDS OR PAIN. WILL CONTINUE TO MONITOR. CALL LIGHT IN REACH.
[2019-12-15 18:23] VITALS: BP 163/68
[2019-12-15 20:54] VITALS: BP 170/61
[2019-12-16 00:30] VITALS: BP 181/61
[2019-12-16 00:48] VITALS: BP 162/89
[2019-12-16 06:28] VITALS: BP 173/56
[2019-12-16 08:41] LABS: HEMATOCRIT 28.3 % (36.0-48.0); LYMPHOCYTES 15.3 % (15-50); MCH 26.5 pg (26.0-34.0); MCHC 31.8 g/dL (31.0-37.0); MEAN PLATELET VOLUME 10.1 fL (7.4-10.4); NEUTROPHILS 74.6 % (40-80); PLATELET COUNT 394 10x3/uL (130-400); WBC 16.9 10x3/uL (4.8-10.8)
[2019-12-16 08:44] LABS: MCV 83.2 fL (80.0-100.0)
[2019-12-16 09:06] LABS: ALBUMIN 2.8 g/dL (3.4-5.0); ANION GAP 14.9 mmol/L (8-16); BILIRUBIN - TOTAL 0.27 mg/dL (0.2-1.3); CALCIUM 8.2 mg/dL (8.5-10.1); CARBON DIOXIDE 23.5 mmol/L (21.0-32.0); CREATININE - SERUM 3.5 mg/dL (0.6-1.3); PHOSPHOROUS 3.8 mg/dL (2.5-4.9); POTASSIUM - SERUM 3.4 mmol/L (3.5-5.1); PROTEIN - SERUM 7.3 g/dL (6.4-8.2)
[2019-12-16 09:14] VITALS: BP 158/69
[2019-12-16 16:52] VITALS: BP 192/82
--- NOTE | 2019-12-16 17:12 | NUR ---
I have reviewed this patient and I concur with the Shift Assessment completed by the Licensed Practical Nurse today this shift.
[2019-12-16 20:00] VITALS: BP 178/81
[2019-12-17] VITALS: BP 167/64
[2019-12-17 04:00] VITALS: BP 153/59
[2019-12-17 05:47] LABS: BASOPHILS 0.5 % (0-2); EOSINOPHILS 5.3 % (0-7); HEMATOCRIT 27.5 % (36.0-48.0); HEMOGLOBIN 8.1 g/dL (12-16); IMMATURE GRANULOCYTES 0.6 % (0-5); LYMPHOCYTES 15.9 % (15-50); MCHC 29.5 g/dL (31.0-37.0); MEAN PLATELET VOLUME 10.3 fL (7.4-10.4); MONOCYTES 11.4 % (2-11); NEUTROPHILS 66.3 % (40-80); PLATELET COUNT 356 10x3/uL (130-400); RBC 3.11 10x6/uL (4.00-5.40); RDW 14.7 % (11.5-14.5); WBC 14.3 10x3/uL (4.8-10.8)
[2019-12-17 06:09] LABS: MCV 88.4 fL (80.0-100.0)
[2019-12-17 06:13] LABS: ALBUMIN 2.7 g/dL (3.4-5.0); ANION GAP 16.1 mmol/L (8-16); BILIRUBIN - TOTAL 0.29 mg/dL (0.2-1.3); CALCIUM 8.1 mg/dL (8.5-10.1); CARBON DIOXIDE 23.6 mmol/L (21.0-32.0); POTASSIUM - SERUM 3.7 mmol/L (3.5-5.1); PROTEIN - SERUM 6.3 g/dL (6.4-8.2)
[2019-12-17 09:35] VITALS: BP 164/74
--- NOTE | 2019-12-17 11:40 | MORECARE ---
CASE MANAGEMENT DISCHARGE SUMMARY PATIENT: JUDIE LOPES UNIT: [id number] ADM DATE: 12/05/19 AGE: 64 : 59 SEX: F ROOM/BED: D.7197 AUTHOR: DONTAEDOC PHYSICIAN: REFERRING PHYSICIAN: KELSEY QUISPE MD DATE OF SERVICE: 12/17/19 Discharge Plan Patient Name: JUDIE LOPES Facility: [facility]:[place] : 1955 Planned Disposition: Inpatient Rehab Anticipated Discharge Date: Discharge Date: Expected LOS: Initial Reviewer: [id number] Initial Review Date: 12/10/2019 Generated: 12/17/19 12:39 pm Comments DCP- Discharge Planning Updated by [email or web address]: Tracey Jairo on 12/17/19 10:[address] I spoke with patient and she wants to go home instead of rehab. I talked to her about home health to continue strengthening and at first she said yes, then changed her mind and states she has a good family that will help her and she does not want home health. She signed a ZULEYKA for [facility] if she changed her mind again. I called Samanta, dialysis coordinator, and she states patient is not T-TH-SA, that she is MWF. Samanta states Dr. Quispe is going to DC in the am and states OK to wait until Sunday to have dialysis. I gave the patient the welcome letter and read her the information and placed it in her bag. I also gave the welcome letter to the artificial flowers starcher to include in DC packet. First dialysis is December 18 to arrive at 1600. CM will continue to follow and assist with discharge planning/needs. DCP- Discharge Planning Updated by [id number]: Tracey Ramírezmoody on 12/15/19 1:[address] I spoke with Nadya at Inpatient rehab at [facility] in [place]. Nadya states that she has not received a fax or a consult on this patient. I faxed clinical to her at this time. I spoke with the patient, she is anticipating discharging on Sunday. CM will continue to follow and assist with discharge planning/needs. DCP- Discharge Planning Updated by [id number]: Elise Gomez on 12/11/19 2:[address] Rehab order obtained. Provided patient with choices of Rehab @[facility], [facility], [facility] or [facility]. Patient's choice is [facility]. Patient Choice signed, original to patient and copy to the chart. CM Contacted Marjorie, with [facility]#[phone], provided initial information and faxed available information to Marjorie @[phone]. Per Rehab, they will provide HD on their 4th floor. We are pending PT/OT evaluations. Received Patient's Welcome Letter for HD [facility] obtained and provided/explained to the patient. HD schedule: M/W/F @4:00 pm. First appointment Thursday December 12, 2019 @3:00 pm for paperwork. Copy placed on the chart. Family contact: Alton Lopes (spouse)( H)[phone] works until 5 pm, Karla Montano (gdtr) [phone]. [facility] gdtr will be able to contact patient's spouse during day time hours. [phone] faxed chart information to Marjorie with [facility] #[phone], . DCP- Discharge Planning Updated by [email or web address]: Tracey Gill on 12/10/19 3:[address] Patient Name: JUDIE LOPES Admission Status: ER Accout number: [id number] Admission Date: 12-05-2019 : 1955 Admission Diagnosis:ACUTE KIDNEY FAILURE, UNSPECIFIED Attending: Kelsey Quispe Current LOS: 5 Anticipated DC Date: Planned Disposition: Inpatient Rehab Primary Insurance: MEDICARE A & B Discharge Planning Comments: CM met with patient to discuss discharge planning/needs. States she lives with her in a single story home. States she has gotten very weak and is requesting inpatient rehab at [facility] prior to discharging home. ZULEYKA for [facility] signed and rehab screen ordered. I have also ordered a PT eval. She states that she uses her walker for ambulation. She will be set up at [facility] in [place] for dialysis. I spoke with Samanta Weiner, OP dialysis coordinator, and she states she has a chair for her, but will let us know date and time when she is ready for DC. I notified Samanta that patient is requesting inpatient rehab prior to discharge. CM will continue to follow and assist with discharge planning/needs. #[phone] Data Analysis Assistant: Tracey Gill DCPIA - Discharge Planning Initial Assessment Updated by [email or web address]: Tracey Gill on 12/10/19 4:39 pm * Is the patient Alert and Oriented? Yes * How many steps to enter\exit or inside your home? 4/0 * PCP Dr. Lacey in [place] * Pharmacy [facility] in [place] * Preadmission Environment Home with Family * ADLs Partial Dependent * Partial ADLs (Assistance needed) Ambulation * Equipment Glucometer Other * Other Equipment Rollator walker * List name and contact numbers for known caregivers / representatives who currently or will assist patient after discharge: Alton Lopes [facility] - [phone] * Verbal permission to speak to the caregivers and representatives has been obtained from the patient. Yes * Community resources currently utilized Home Health * Please name any agencies selected above. unknown home health agency * Additional services required to return to the preadmission environment? Yes * Can the patient safely return to the preadmission environment? Yes * Has this patient been hospitalized within the prior 30 days at any hospital? Yes Coverage Notice Reviewer: [id number] Kaya Friedmany Jairo Notice Issued Date-Time: 12/10/2019 16:43 Notice Type: IM Discharge Notice Notice Delivered To: Patient Relationship to Patient: Self Straddle Truck Driver Name: Delivery Method: HAND - Hand Delivered Sue Days: Prior Verbal Notification: Recipient Understood Notice: Yes Recipient Signature: Yes Med Rec Note Co-signed by Attending: Coverage Notice Comment: IMM explained, signed, given, copy placed in MR Reviewer: [id number] Kaya Gill Notice Issued Date-Time: 12/10/2019 16:43 Notice Type: Patient Choice Letter Notice Delivered To: Patient Relationship to Patient: Self Straddle Truck Driver Name: Delivery Method: HAND - Hand Delivered Sue Days: Prior Verbal Notification: Recipient Understood Notice: Yes Recipient Signature: Yes Med Rec Note Co-signed by Attending: Coverage Notice Comment: ZULEYKA for inpatient rehab at [facility] Reviewer: [id number] Kaya Gomez Notice Issued Date-Time: 12/11/2019 10:34 Notice Type: Patient Choice Letter Notice Delivered To: Patient Relationship to Patient: Self Straddle Truck Driver Name: Judie Lopes Delivery Method: HAND - Hand Delivered Sue Days: Prior Verbal Notification: Recipient Understood Notice: Yes Recipient Signature: Yes Med Rec Note Co-signed by Attending: Coverage Notice Comment: Patient Choice for [facility] signed/provided for patient. Copy to chart. Reviewer: [id number] Gill Notice Issued Date-Time: 12/17/2019 9:00 Notice Type: IM Discharge Notice Notice Delivered To: Patient Relationship to Patient: Self Straddle Truck Driver Name: Delivery Method: HAND - Hand Delivered Sue Days: Prior Verbal Notification: Recipient Understood Notice: Yes Recipient Signature: Yes Med Rec Note Co-signed by Attending: Coverage Notice Comment: IMM explained, signed, given, copy placed in MR Reviewer: [id number] Gill Notice Issued Date-Time: 12/17/2019 11:35 Notice Type: Patient Choice Letter Notice Delivered To: Patient Relationship to Patient: Self Straddle Truck Driver Name: Delivery Method: HAND - Hand Delivered Sue Days: Prior Verbal Notification: Recipient Understood Notice: Yes Recipient Signature: Yes Med Rec Note Co-signed by Attending: Coverage Notice Comment: [facility] Last DP export: 12/15/19 2:42 p Patient Name: JUDIE LOPES Page [id number] at 1140 All edits/amendments must be made on the electronic document DICTATION DATE: 12/17/19 113 EQUIPMENT TESTER: LAUREN 12/17/19 1139 RPT#: [id number] [place] DATE: STATUS: ADM IN [facility] [address] [place] [address] END OF REPORT
[2019-12-17 13:47] VITALS: BP 157/71; BP 157/89
--- NOTE | 2019-12-17 14:39 | NUR ---
I have reviewed this patient and I concur with the Shift Assessment completed by the Licensed Practical Nurse today this shift.
--- NOTE | 2019-12-17 15:45 | NUR ---
UP WITH PT/OT. AMBULATORY WITH WALKER AND MINIMAL ASSIST WITH ADLS. WOUND CARE CONTINUES MONITORING.
--- NOTE | 2019-12-17 17:14 | NUR ---
OT NOTE: PT COMPLETED SITTING AT EOB WITH SBA. PT COMPLETED ADL MOB WITH CGA. PT COMPLETED LOTION ON FEET AT EOB WITH SBA. PT COMPLETED KAREN/DOFF SHOES WITH SET UP. [phone] THANK YOU,LAMONTE HASKINS
[2019-12-17 18:26] VITALS: BP 157/79
[2019-12-17 20:00] VITALS: BP 151/89
[2019-12-18] VITALS: BP 155/86
[2019-12-18 04:00] VITALS: BP 174/62
[2019-12-18 06:13] LABS: BASOPHILS 0.3 % (0-2); EOSINOPHILS 4.5 % (0-7); HEMATOCRIT 26.3 % (36.0-48.0); HEMOGLOBIN 7.9 g/dL (12-16); IMMATURE GRANULOCYTES 0.6 % (0-5); LYMPHOCYTES 20.7 % (15-50); MCH 25.8 pg (26.0-34.0); MEAN PLATELET VOLUME 10.2 fL (7.4-10.4); MONOCYTES 7.2 % (2-11); NEUTROPHILS 66.7 % (40-80); PLATELET COUNT 369 10x3/uL (130-400); RBC 3.06 10x6/uL (4.00-5.40); RDW 14.5 % (11.5-14.5); WBC 14.8 10x3/uL (4.8-10.8)
[2019-12-18 06:14] LABS: MCV 85.9 fL (80.0-100.0)
[2019-12-18] MEDS ORDERED: BACTRIM DS PO (06:26)
[2019-12-18] MEDS ORDERED: PROTONIX40 MG PO (06:28)
[2019-12-18] MEDS ORDERED: FLORAJEN3 CAPS460 MG PO (06:28)
[2019-12-18] MEDS ORDERED: REGLAN5 MG PO (06:28)
[2019-12-18] MEDS ORDERED: FOLATE0.4 MG PO (06:29)
[2019-12-18] MEDS ORDERED: GLIPIZIDE10 MG PO (06:29)
[2019-12-18] MEDS ORDERED: HUMULIN R100 UNIT/1 SC (06:31)
[2019-12-18 06:49] LABS: ANION GAP 14.4 mmol/L (8-16); CALCIUM 7.9 mg/dL (8.5-10.1); CARBON DIOXIDE 25.3 mmol/L (21.0-32.0); CREATININE - SERUM 3.7 mg/dL (0.6-1.3); PHOSPHOROUS 3.7 mg/dL (2.5-4.9); POTASSIUM - SERUM 3.7 mmol/L (3.5-5.1)
--- NOTE | 2019-12-18 08:22 | NUR ---
SPOKE WITH PT SPOUSE VIA PHONE TO LET HIM KNOW PT HAS BEEN DISCHARGE AND HE CAN COME AND PICK HER UP. VERBAL ACKNOWLEDGEMENT RECEIVED.
--- NOTE | 2019-12-18 08:28 | NUR ---
PT RECEIVED AWAKE AND ALERT. BEING DISCHARGED TODAY. TELEMETRY REMOVED, IV REMOVED, NOTIFIED.
--- NOTE | 2019-12-18 08:52 | MORECARE ---
CASE MANAGEMENT DISCHARGE SUMMARY PATIENT: JUDIE LOPES UNIT: [id number] ADM DATE: 12/05/19 AGE: 64 : 59 SEX: F ROOM/BED: D.6203 AUTHOR: SANTIAGO DIGGS PHYSICIAN: REFERRING PHYSICIAN: KELSEY QUISPE MD DATE OF SERVICE: 12/18/19 Discharge Plan Patient Name: JUDIE LOPES Facility: [facility]:[place] : 1955 Planned Disposition: Inpatient Rehab Anticipated Discharge Date: Discharge Date: Expected LOS: Initial Reviewer: [id number] Initial Review Date: 12/10/2019 Generated: 12/18/19 9:52 am Comments DCP- Discharge Planning Updated by [id number]: Monae Barragan on 12/18/19 7:[address] I spoke with patient and she wants to go home instead of rehab. I talked to her about home health to continue strengthening and at first she said yes, then changed her mind and states she has a good family that will help her and she does not want home health. She signed a ZULEYKA for [facility] if she changed her mind again. I called Samanta, dialysis coordinator, and she states patient is not T-TH-SA, that she is MWF. Samanta states Dr. Quispe is going to DC in the am and states OK to wait until Sunday to have dialysis. I gave the patient the welcome letter and read her the information and placed it in her bag. I also gave the welcome letter to the freight flow sales leader to include in DC packet. First dialysis is Sunday/December 18 to arrive at 1600. CM will continue to follow and assist with discharge planning/needs.Patient Name: JUDIE LOPES Encounter No: [id number] : 1955 Primary Insurance: MEDICARE A & B Anticipated DC Date: Planned Disposition: Inpatient Rehab External Planned Provider: : DCP follow-up note: CM spoke with patient about dc plan. Patient stated she does not want to go to IP rehab or have HH. states she is fearful of this virus and does not want to take the chance of getting it. States her priority is getting to dialysis. Stated at any time she changed her mind she can call CM to initiate set up. ZULEYKA declination signed and placed on chart. Monae Barragan MSN,RN,CM DCP- Discharge Planning Updated by [id number]: Tracey Gill on 12/15/19 1:[address] I spoke with Nadya at Inpatient rehab at [facility] in [place]. Nadya states that she has not received a fax or a consult on this patient. I faxed clinical to her at this time. I spoke with the patient, she is anticipating discharging on Sunday. CM will continue to follow and assist with discharge planning/needs. DCP- Discharge Planning Updated by [id number]: Eliseheike Gomez on 12/11/19 2:[address] Rehab order obtained. Provided patient with choices of Rehab @[facility], [facility], [facility] or [facility]. Patient's choice is [facility]. Patient Choice signed, original to patient and copy to the chart. CM Contacted Marjorie, with [facility]#[phone], provided initial information and faxed available information to Marjorie @[phone]. Per Rehab, they will provide HD on their 4th floor. We are pending PT/OT evaluations. Received Patient's Welcome Letter for HD [facility] obtained and provided/explained to the patient. HD schedule: M/W/F @4:00 pm. First appointment Thursday December 12, 2019 @3:00 pm for paperwork. Copy placed on the chart. Family contact: Alton Lopes (spouse)( H)[phone] works until 5 pm, Karla Montano (gdtr) [phone]. [facility]'s spouse during day time hours. [phone] [facility][phone], . DCP- Discharge Planning Updated by [id number]: Tracey Gill on 12/10/19 3:[address] Patient Name: JUDIE LOPES Admission Status: ER Accout number: [id number] Admission Date: 12-05-2019 : 1955 Admission Diagnosis:ACUTE KIDNEY FAILURE, UNSPECIFIED Attending: Kelsey Quispe Current LOS: 5 Anticipated DC Date: Planned Disposition: Inpatient Rehab Primary Insurance: MEDICARE A & B Discharge Planning Comments: CM met with patient to discuss discharge planning/needs. States she lives with her in a single story home. States she has gotten very weak and is requesting inpatient rehab at [facility] prior to discharging home. ZULEYKA for [facility] signed and rehab screen ordered. I have also ordered a PT eval. She states that she uses her walker for ambulation. She will be set up at [facility] in [place] for dialysis. I spoke with Samanta Weiner, OP dialysis coordinator, and she states she has a chair for her, but will let us know date and time when she is ready for DC. I notified Samanta that patient is requesting inpatient rehab prior to discharge. CM will continue to follow and assist with discharge planning/needs. #[phone] Workforce Specialist: Tracey Gill DCPIA - Discharge Planning Initial Assessment Updated by [id number]: Tracey Gill on 12/10/19 4:39 pm * Is the patient Alert and Oriented? Yes * How many steps to enter\exit or inside your home? 4/0 * PCP Dr. Lacey in [place] * Pharmacy [facility] in [place] * Preadmission Environment Home with Family * ADLs Partial Dependent * Partial ADLs (Assistance needed) Ambulation * Equipment Glucometer Other * Other Equipment Rollator walker * List name and contact numbers for known caregivers / representatives who currently or will assist patient after discharge: Alton Lopes - [facility] - [phone] * Verbal permission to speak to the caregivers and representatives has been obtained from the patient. Yes * Community resources currently utilized Home Health * Please name any agencies selected above. unknown home health agency * Additional services required to return to the preadmission environment? Yes * Can the patient safely return to the preadmission environment? Yes * Has this patient been hospitalized within the prior 30 days at any hospital? Yes Coverage Notice Reviewer: [id number] - Tracey Gill Notice Issued Date-Time: 12/10/2019 16:43 Notice Type: IM Discharge Notice Notice Delivered To: Patient Relationship to Patient: Self Housesmith Name: Delivery Method: HAND - Hand Delivered Sue Days: Prior Verbal Notification: Recipient Understood Notice: Yes Recipient Signature: Yes Med Rec Note Co-signed by Attending: Coverage Notice Comment: IMM explained, signed, given, copy placed in MR Reviewer: [id number] Kaya Gill Notice Issued Date-Time: 12/10/2019 16:43 Notice Type: Patient Choice Letter Notice Delivered To: Patient Relationship to Patient: Self Housesmith Name: Delivery Method: HAND - Hand Delivered Sue Days: Prior Verbal Notification: Recipient Understood Notice: Yes Recipient Signature: Yes Med Rec Note Co-signed by Attending: Coverage Notice Comment: ZULEYKA for inpatient rehab at [facility] Reviewer: [id number] Kaya Gomez Notice Issued Date-Time: 12/11/2019 10:34 Notice Type: Patient Choice Letter Notice Delivered To: Patient Relationship to Patient: Self Housesmith Name: Judie Lopes Delivery Method: HAND - Hand Delivered Sue Days: Prior Verbal Notification: Recipient Understood Notice: Yes Recipient Signature: Yes Med Rec Note Co-signed by Attending: Coverage Notice Comment: Patient Choice for [facility] signed/provided for patient. Copy to chart. Reviewer: [id number] Kaya Gill Notice Issued Date-Time: 12/17/2019 9:00 Notice Type: IM Discharge Notice Notice Delivered To: Patient Relationship to Patient: Self Housesmith Name: Delivery Method: HAND - Hand Delivered Sue Days: Prior Verbal Notification: Recipient Understood Notice: Yes Recipient Signature: Yes Med Rec Note Co-signed by Attending: Coverage Notice Comment: IMM explained, signed, given, copy placed in MR Reviewer: [id number] Gill Notice Issued Date-Time: 12/17/2019 11:35 Notice Type: Patient Choice Letter Notice Delivered To: Patient Relationship to Patient: Self Housesmith Name: Delivery Method: HAND - Hand Delivered Sue Days: Prior Verbal Notification: Recipient Understood Notice: Yes Recipient Signature: Yes Med Rec Note Co-signed by Attending: Coverage Notice Comment: [facility] Reviewer: [email or web address] Kaya Barragan Notice Issued Date-Time: 12/18/2019 8:25 Notice Type: Patient Choice Letter Notice Delivered To: Patient Relationship to Patient: Housesmith Name: Delivery Method: HAND - Hand Delivered Sue Days: Prior Verbal Notification: Recipient Understood Notice: Yes Recipient Signature: Yes Med Rec Note Co-signed by Attending: Coverage Notice Comment: ZULEYKA declination for rehab and Last DP export: 12/17/19 10:40 a Patient Name: JUDIE LOPES Page [id number] at 0852 All edits/amendments must be made on the electronic document DICTATION DATE: 12/18/19851 JOURNEYMAN PRESSMAN: LAUREN 12/18/19851 RPT#: [id number] DC DATE: STATUS: ADM IN [facility] [address] [place] [address] END OF REPORT
--- NOTE | 2019-12-19 09:08 | MORECARE ---
CASE MANAGEMENT DISCHARGE SUMMARY PATIENT: JUDIE LOPES UNIT: [id number] ADM DATE: 12/05/19 AGE: 64 : 59 SEX: F ROOM/BED: D.6525 AUTHOR: SANTIAGO DIGGS PHYSICIAN: REFERRING PHYSICIAN: KELSEY QUISPE MD DATE OF SERVICE: 12/19/19 Discharge Plan Patient Name: JUDIE LOPES Facility: [facility]:[place] : 1955 Planned Disposition: Inpatient Rehab Anticipated Discharge Date: Discharge Date: 12/18/2019 Expected LOS: Initial Reviewer: [id number] Initial Review Date: 12/10/2019 Generated: 12/19/19 10:07 am Comments DCP- Discharge Planning Updated by [id number]: Monae Barragan on 12/18/19 7:[address] I spoke with patient and she wants to go home instead of rehab. I talked to her about home health to continue strengthening and at first she said yes, then changed her mind and states she has a good family that will help her and she does not want home health. She signed a ZULEYKA for [facility] if she changed her mind again. I called Samanta, dialysis coordinator, and she states patient is not T-TH-SA, that she is MWF. Samanta states Dr. Quispe is going to DC in the am and states OK to wait until Sunday to have dialysis. I gave the patient the welcome letter and read her the information and placed it in her bag. I also gave the welcome letter to the flower grader to include in DC packet. First dialysis is Sunday/December 18 to arrive at 1600. CM will continue to follow and assist with discharge planning/needs.Patient Name: JUDIE LOPES Encounter No: [id number] : 1955 Primary Insurance: MEDICARE A & B Anticipated DC Date: Planned Disposition: Inpatient Rehab External Planned Provider: : DCP follow-up note: CM spoke with patient about dc plan. Patient stated she does not want to go to IP rehab or have HH. states she is fearful of this virus and does not want to take the chance of getting it. States her priority is getting to dialysis. Stated at any time she changed her mind she can call CM to initiate set up. ZULEYKA declination signed and placed on chart. Monae Barragan MSN,RN,CM DCP- Discharge Planning Updated by [id number]: Tracey Gill on 12/15/19 1:[address] I spoke with Nadya at Inpatient rehab at [facility] in [place]. Nadya states that she has not received a fax or a consult on this patient. I faxed clinical to her at this time. I spoke with the patient, she is anticipating discharging on Sunday. CM will continue to follow and assist with discharge planning/needs. DCP- Discharge Planning Updated by [id number]: Eliseheike Gomez on 12/11/19 2:[address] Rehab order obtained. Provided patient with choices of Rehab @[facility], [facility], [facility] or [facility]. Patient's choice is [facility]. Patient Choice signed, original to patient and copy to the chart. CM Contacted Marjorie, with [facility]#[phone], provided initial information and faxed available information to Marjorie @[phone]. Per Rehab, they will provide HD on their 4th floor. We are pending PT/OT evaluations. Received Patient's Welcome Letter for HD [facility] obtained and provided/explained to the patient. HD schedule: M/W/F @4:00 pm. First appointment Thursday December 12, 2019 @3:00 pm for paperwork. Copy placed on the chart. Family contact: Alton Lopes (spouse)( H)[phone] works until 5 pm, Karla Montano (gdtr) [phone]. [facility] will be able to contact patient's spouse during day time hours. [id number] [phone], . DCP- Discharge Planning Updated by [id number]: Tracey Gill on 12/10/19 3:[address] Patient Name: JUDIE LOPES Admission Status: ER Accout number: [id number] Admission Date: 12-05-2019 : 1955 Admission Diagnosis:ACUTE KIDNEY FAILURE, UNSPECIFIED Attending: Kelsey Quispe Current LOS: 5 Anticipated DC Date: Planned Disposition: Inpatient Rehab Primary Insurance: MEDICARE A & B Discharge Planning Comments: CM met with patient to discuss discharge planning/needs. States she lives with her in a single story home. States she has gotten very weak and is requesting inpatient rehab at [facility] prior to discharging home. ZULEYKA for [facility] signed and rehab screen ordered. I have also ordered a PT eval. She states that she uses her walker for ambulation. She will be set up at [facility] in [place] for dialysis. I spoke with Samanta Weiner, OP dialysis coordinator, and she states she has a chair for her, but will let us know date and time when she is ready for DC. I notified Samanta that patient is requesting inpatient rehab prior to discharge. CM will continue to follow and assist with discharge planning/needs. #[phone] Beer Maker: Tracey Gill DCPIA - Discharge Planning Initial Assessment Updated by [id number]: Tracey Gill on 12/10/19 4:39 pm * Is the patient Alert and Oriented? Yes * How many steps to enter\exit or inside your home? 4/0 * PCP Dr. Lacey in [place] * Pharmacy [facility] in [place] * Preadmission Environment Home with Family * ADLs Partial Dependent * Partial ADLs (Assistance needed) Ambulation * Equipment Glucometer Other * Other Equipment Rollator walker * List name and contact numbers for known caregivers / representatives who currently or will assist patient after discharge: Alton Lopes - [facility] - [phone] * Verbal permission to speak to the caregivers and representatives has been obtained from the patient. Yes * Community resources currently utilized Home Health * Please name any agencies selected above. unknown home health agency * Additional services required to return to the preadmission environment? Yes * Can the patient safely return to the preadmission environment? Yes * Has this patient been hospitalized within the prior 30 days at any hospital? Yes Coverage Notice Reviewer: [id number] - Tracey Gill Notice Issued Date-Time: 12/10/2019 16:43 Notice Type: IM Discharge Notice Notice Delivered To: Patient Relationship to Patient: Self Grocery Clerk Marking Name: Delivery Method: HAND - Hand Delivered Sue Days: Prior Verbal Notification: Recipient Understood Notice: Yes Recipient Signature: Yes Med Rec Note Co-signed by Attending: Coverage Notice Comment: IMM explained, signed, given, copy placed in MR Reviewer: [id number] Kaya Gill Notice Issued Date-Time: 12/10/2019 16:43 Notice Type: Patient Choice Letter Notice Delivered To: Patient Relationship to Patient: Self Grocery Clerk Marking Name: Delivery Method: HAND - Hand Delivered Sue Days: Prior Verbal Notification: Recipient Understood Notice: Yes Recipient Signature: Yes Med Rec Note Co-signed by Attending: Coverage Notice Comment: ZULEYKA for inpatient rehab at [facility] Reviewer: [id number] Kaya Gomez Notice Issued Date-Time: 12/11/2019 10:34 Notice Type: Patient Choice Letter Notice Delivered To: Patient Relationship to Patient: Self Grocery Clerk Marking Name: Judie Lopes Delivery Method: HAND - Hand Delivered Sue Days: Prior Verbal Notification: Recipient Understood Notice: Yes Recipient Signature: Yes Med Rec Note Co-signed by Attending: Coverage Notice Comment: Patient Choice for [facility] signed/provided for patient. Copy to chart. Reviewer: [id number] Kaya Gill Notice Issued Date-Time: 12/17/2019 9:00 Notice Type: IM Discharge Notice Notice Delivered To: Patient Relationship to Patient: Self Grocery Clerk Marking Name: Delivery Method: HAND - Hand Delivered Sue Days: Prior Verbal Notification: Recipient Understood Notice: Yes Recipient Signature: Yes Med Rec Note Co-signed by Attending: Coverage Notice Comment: IMM explained, signed, given, copy placed in MR Reviewer: [id number] Gill Notice Issued Date-Time: 12/17/2019 11:35 Notice Type: Patient Choice Letter Notice Delivered To: Patient Relationship to Patient: Self Grocery Clerk Marking Name: Delivery Method: HAND - Hand Delivered Sue Days: Prior Verbal Notification: Recipient Understood Notice: Yes Recipient Signature: Yes Med Rec Note Co-signed by Attending: Coverage Notice Comment: [facility] Reviewer: [id number] - Monae Barragan Notice Issued Date-Time: 12/18/2019 8:25 Notice Type: Patient Choice Letter Notice Delivered To: Patient Relationship to Patient: Grocery Clerk Marking Name: Delivery Method: HAND - Hand Delivered Sue Days: Prior Verbal Notification: Recipient Understood Notice: Yes Recipient Signature: Yes Med Rec Note Co-signed by Attending: Coverage Notice Comment: ZULEYKA declination for rehab and Last DP export: 5/14/20 7:52 a Patient Name: JUDIE LOPES Page [phone] at 0908 All edits/amendments must be made on the electronic document DICTATION DATE: 12/19/19906 ALTERATION TAILOR: LAUREN 12/19/19906 RPT#: [id number] DC DATE:12/18/19 STATUS: DIS IN [facility] [address] [place] [address] END OF REPORT
== END 2019-12-18 11:12 | disposition home or self-care (01) | DRG 674 ==
LOC: D.ER 18:16 → D.M2 21:30
PROVIDERS: Family Medicine; Internal Medicine Nephrology; Surgery; ADMIT Internal Medicine Nephrology; ATTEND Internal Medicine Nephrology
PROC: 031B3ZF Bypass Right Radial Artery to Lower Arm Vein, Percutaneous Approach (ICD-10-PCS; principal; 2019-12-08 09:30)
DX: N17.9 Acute kidney failure, unspecified (principal); I13.0 Hypertensive heart and chronic kidney disease with heart failure and stage 1 through stage 4 chronic kidney disease, or unspecified chronic kidney disease; I50.32 Chronic diastolic (congestive) heart failure; E11.22 Type 2 diabetes mellitus with diabetic chronic kidney disease; N18.4 Chronic kidney disease, stage 4 (severe); I50.9 Heart failure, unspecified; E87.5 Hyperkalemia; D63.1 Anemia in chronic kidney disease; R19.7 Diarrhea, unspecified; Z86.73 Personal history of transient ischemic attack (TIA), and cerebral infarction without residual deficits; I48.91 Unspecified atrial fibrillation; D50.9 Iron deficiency anemia, unspecified